=== PATIENT | female | born 1985 | race Caucasian/White ===

== ENCOUNTER 2019-05-09 19:03 | Emergency (ER) | payer BC, SELFPAY ==
[2019-05-09 19:18] VITALS: BP 117/67; PULSE 87; RESP 16; TEMP 37.9; O2SAT 100
--- NOTE | 2019-05-09 19:24 | ED.GENADULT ---
HPI - General Adult General Chief complaint: Upper Respiratory Infection Stated complaint: SORE THROAT Time Seen by Provider: 05/09/19 19:23 Source: patient Mode of arrival: ambulatory Limitations: no limitations History of Present Illness HPI narrative: Pt has had a sore throat, fever and congestion for 2.5 days. She has been treating at home with 600 mg Ibuprofen. States her Tmax at home was 101. She has had difficulty eating and drinking. Has history of asthma, no SOB or wheezing. Onset (ago): day(s) Associated symptoms: fever/chills, headaches, loss of appetite and malaise Treatments prior to arrival: NSAID Related Data Allergies Allergy/AdvReac Type Severity Reaction Status Date / Time No Known Allergies Allergy Unknown Unverified 08/10/12 09:59 Review of Systems Review of Systems: All systems reviewed & are unremarkable except as noted in HPI and below PMFSH Social History Social History (Updated 05/09/19 @ 19:44 by Kayley Flores PA-C) Smoking status: Never smoker Alcohol intake: never Substance use: never Living arrangements: with family Occupation/Education: unemployed Exam Const: General: no acute distress, alert and ill appearing Orientation/consciousness: patient oriented x3 HENMT: Ears: TM abnormal with fluid behind the TM on the right Throat: posterior oropharynx abnormal erythema Eyes: Conjunctivae: conjunctivae normal Pupils: Equal, round and reactive pupils present Neck: Neck: no lymphadenopathy Resp: Effort & Inspection: normal respiratory effort Auscultation: clear to auscultation bilaterally Cardio: Rate: regular rate Rhythm: regular rhythm Skin: General skin exam: normal color Rashes: no rashes Extrem: General: normal to inspection Psych: Mental Status: mental status grossly normal Course Course Emergency Course: Is strep positive. Flu is negative. Will discharge on Amoxicillin Vital Signs Vital signs: Vital Signs Temperature 37.9 C H 05/09/19 19:18 Pulse Rate 87 05/09/19 19:18 Respiratory Rate 16 05/09/19 19:18 Blood Pressure 117/67 05/09/19 19:18 Pulse Oximetry 100 05/09/19 19:18 Temperature 37.9 C H 05/09/19 19:18 Pulse Rate 87 05/09/19 19:18 Respiratory Rate 16 05/09/19 19:18 Blood Pressure 117/67 05/09/19 19:18 Pulse Oximetry 100 05/09/19 19:18 Medical Decision Making Vital Signs Vital Signs: Vital Signs Temperature 37.9 C H 05/09/19 19:18 Pulse Rate 87 05/09/19 19:18 Respiratory Rate 16 05/09/19 19:18 Blood Pressure 117/67 05/09/19 19:18 Pulse Oximetry 100 05/09/19 19:18 Temperature 37.9 C H 05/09/19 19:18 Pulse Rate 87 05/09/19 19:18 Respiratory Rate 16 05/09/19 19:18 Blood Pressure 117/67 05/09/19 19:18 Pulse Oximetry 100 05/09/19 19:18 Discharge Plan Discharge Clinical Impression: Acute streptococcal pharyngitis Patient Disposition: Home, Self-Care Condition: Stable Instructions: Antibiotic Form, Strep Throat (ED) Additional Instructions: Complete antibiotics as prescribed. Use cepestat throat lozenges for comfort. Take Ibuprofen or tylenol for temp >100.4. Do not share cups with your children. Follow up with your PMD as needed. Return to ED if you develop respiratory distress or are unable to swallow. Prescriptions: New amoxicillin 875 mg tablet 875 mg PO Q12H Qty: 14 RF: 0 Follow-up/Referrals: UNKNOWN,DOCTOR [Primary Care Provider] - Time of Disposition: 20:24
== END 2019-05-09 20:49 | disposition home or self-care (01) ==
PROVIDERS: Emergency Provider Emergency Medicine
DX: J02.0 Streptococcal pharyngitis (principal)
CPT/HCPCS: 87804; 87880; 99283

== ENCOUNTER 2020-02-21 20:42 | Emergency (ER) | payer BC, MEDICAID, SELFPAY ==
--- NOTE | ~2020-02-21 | XR_ITS ---
XR chest 1V portable DATE: 02/21/2020 22:11 INDICATION: Cough, shortness of breath. TECHNIQUE: Portable AP chest on 02/21/2020 at 2130 hours COMPARISON: 27/09/2018 PA and lateral chest FINDINGS: Normal heart size. No hilar or mediastinal enlargement. No pulmonary infiltrate or consolid ation, pleural effusion or pulmonary vascular congestion or pneumothorax. IMPRESSION: No active cardiopulmonary disease Reviewed, dictated and finalized at location A. T PSYCHIATRIST
--- NOTE | 2020-02-21 21:01 | ED.ASTHMA ---
HPI - Asthma General Chief Complaint: Asthma Stated Complaint: wheezing, asthma really bad Time Seen by Provider: 02/21/20 20:47 Source: patient Mode of arrival: ambulatory Limitations: no limitations History of Present Illness HPI Narrative: This patient is a 34 year old female with history of smoking and asthma who presents for evaluation an asthma exacerbation. Patient states she developed symptoms of cough, wheezing and chest congestion since Monday. She report she is coughing up a lot phlegm. Her cough has continued to worsen and she states she is having worsen productive cough with yellow sputum. She has severe coughing spells that have caused her to have vomiting. She denies fever, chills, or sick contacts. She has been using her rescue inhaler frequently without relief. Related Data Allergies Allergy/AdvReac Type Severity Reaction Status Date / Time No Known Allergies Allergy Verified 02/22/20 00:57 Review of Systems Review of Systems: All systems reviewed & are unremarkable except as noted in HPI and below Constitutional: Constitutional: Denies chills and Denies fever(s) ENT: Denies nasal congestion and Denies sore throat Cardiovascular: Cardiovascular: Denies chest pain Respiratory: Respiratory: Reports chest congestion, Reports cough, Reports dyspnea and Reports wheezing Gastrointestinal: Gastrointestinal: Denies abdominal pain and Reports vomiting (after coughing spell) [facility] Past Medical History Medical History (Updated 02/22/20 @ 00:57 by Tania Sutton MD) Asthma Surgical History Surgical History (Updated 02/21/20 @ 21:02 by Tania Sutton MD) H/O hernia repair Social History Social History (Updated 02/21/20 @ 21:02 by Tania Sutton MD) Tobacco type: e-cigarettes/vaping Alcohol intake: never Substance use: never Exam Const: General: no acute distress and alert Orientation/consciousness: patient oriented x3 HENMT: Head: normocephalic and atraumatic Ears: TM's normal bilaterally General nose exam: No nasal polyps present Face and sinus: face symmetric Mouth: Yes Normal oral and palatal mucosa present, Yes lip normal, Yes oropharynx normal and Yes moist mucous membranes Teeth and gingiva: dentition normal and gingiva normal Throat: posterior oropharynx normal, tonsils normal and uvula midline Eyes: EOM: EOMs intact bilaterally Resp: Effort & Inspection: normal respiratory effort, not labored, no retractions and not tachypneic Auscultation: wheezes expiratory wheezes and throughout Cardio: Rate: tachycardic Rhythm: regular rhythm Heart sounds: no murmurs GI: GI Palp: Yes Soft to palpation, No Tenderness to palpation present (GI), No Guarding due to palpation present (GI) and No Rigid due to palpation Back/Spine/Pelvis: Back: no CVA tenderness Skin: General skin exam: normal color Lesions: no lesions Neuro: General: patient oriented x3 and moves all extremities Course Reevaluation(s) Reevaluation #1: PAtient is still having wheezing so will order another MDI Date: 02/21/20 Time: 22:57 Reevaluation #2: Patient states she feels much better and she is ready for discharge home. Date: 02/22/20 Time: 00:54 Vital Signs Vital signs: Vital Signs Temperature 98.1 F 02/21/20 21:07 Pulse Rate 120 H 02/21/20 21:07 Respiratory Rate 20 02/21/20 21:07 Blood Pressure 136/123 H 02/21/20 21:07 Pulse Oximetry 100 02/21/20 21:07 Temperature 98.1 F 02/21/20 21:07 Pulse Rate 107 H 02/22/20 01:13 Respiratory Rate 18 02/22/20 01:13 Blood Pressure 147/74 H 02/22/20 01:13 Pulse Oximetry 97 02/22/20 01:13 MDM - Asthma Lab Data Attestation: I reviewed the patient's lab results. Result diagrams: 02/21/20 21:48 02/21/20 21:48 Labs: Lab Results 02/21/20 02/21/20 02/21/20 Range/Units 21:39 21:48 21:48 WBC 11.4 H (4.5-10.0) K/mm3 RBC 4.60 (4.2-5.4) M/mm3 Hgb 12.0 (12.0-
[2020-02-21 21:07] VITALS: BP 136/123; PULSE 120; RESP 20; TEMP 36.7; O2SAT 100
[2020-02-21 21:11] VITALS: PULSE 138; RESP 28
[2020-02-21] MEDS: ALBUTEROL SULFATE (*SP) AEROSOL 1 PUFF 6 PUFF INHALATION ×2 (21:11→23:04)
[2020-02-21] MEDS: predniSONE 20 MG TABLET 60 MG PO (21:25)
[2020-02-21 22:01] LABS: Basophils Absolute Auto 0.1 K/mm3 (0.0-0.1); Eosinophils Absolute Auto 1.2 K/mm3 (0-0.3); Eosinophils Percent Auto 10.4 % (0-4.4); Hematocrit 36.6 % (37.0-47.0); Immature Granulocyte Absolute 0.05 K/mm3 (0.00-0.031); Immature Granulocyte Percent A 0.4 % (0-0.5); Lymphocytes Absolute Auto 1.75 K/mm3 (0.9-3.2); Lymphocytes Percent Auto 15.4 % (18.3-44.2); Mean Corpuscular HGB Conc 32.8 g/dl (32-36); Mean Corpuscular Hemoglobin 26.1 pg (26-34); Mean Corpuscular Volume 79.6 fl (80-100); Mean Platelet Volume 9.9 fl (7.4-10.4); Monocytes Absolute Auto 0.6 K/mm3 (0.1-0.6); Monocytes Percent Auto 5.6 % (2.6-8.5); Neutrophils Absolute Auto 7.7 K/mm3 (1.3-6.7); Neutrophils Percent Auto 67.2 % (45.5-73.1); Platelet Count Result 363 k/mm3 (150-375); Red Cell Distribution Width 15.3 % (11.5-14.5); White Blood Count 11.4 K/mm3 (4.5-10.0)
[2020-02-21 22:10] LABS: Lactic Acid Reflex 1.5 mmol/L (0.7-2.1)
[2020-02-21 22:11] LABS: Alanine Aminotransferase 27 U/L (4-35); Albumin Level 4.8 g/dL (3.5-5.1); Alkaline Phosphatase 62 U/L (38-126); Anion Gap 12 mmol/L (8-16); Aspartate Amino Transferase 30 U/L (14-36); Bilirubin,Total 0.6 mg/dL (0.2-1.3); Blood Urea Nitrogen 6 mg/dL (7-17); Calcium 9.9 mg/dL (8.4-10.2); Carbon Dioxide 24 mmol/L (22-30); Chloride 104 mmol/L (98-107); Estimated CRCL calculation 91 ml/min; Estimated Glomerular Filt Rate > 60; Glucose 99 mg/dL (65-105); Potassium 3.8 mmol/L (3.4-5.0); Sodium 140 mmol/L (137-145)
[2020-02-21 22:16] LABS: CRP 0.8 mg/dL (<1.0)
[2020-02-21 23:04] VITALS: PULSE 115; RESP 26
[2020-02-21] MEDS: LACTATED RINGERS 1,000 ML 999 ML IV CONT (23:39)
[2020-02-22 01:13] VITALS: BP 147/74; PULSE 107; RESP 18; O2SAT 97
[2020-02-22 13:19] LABS: SARS-CoV-2 RNA PCR Negative
== END 2020-02-22 01:15 | disposition home or self-care (01) ==
PROVIDERS: Emergency Provider General Practice
DX: J45.901 Unspecified asthma with (acute) exacerbation (principal); Z20.828 Contact with and (suspected) exposure to other viral communicable diseases
CPT/HCPCS: 36415; 71045; 80053; 81025; 83605; 85025; 86140; 87635; 94640; 96365; 99284; A9270; C9803; J0456; J7120; J7512; U0003

== ENCOUNTER 2020-04-09 16:57 | Emergency (ER) | payer BC, SELFPAY ==
[2020-04-09] VITALS (15 sets, daily range): BP systolic 115–130; BP diastolic 59–95; PULSE 68–113; RESP 9–28; TEMP 36.3; O2SAT 94–99
--- NOTE | ~2020-04-09 | XR_ITS ---
EXAMINATION: XR chest 1V portable INDICATION: Shortness of breath and fever TECHNIQUE: Portable AP chest at 1753 hours COMPARISON: 02/21/2020 FINDINGS: The lungs are free of acute opacities. There is no pleural effusion or pneumothorax. The ca rdiomediastinal silhouette is normal. The visualized bones and soft tissues are unremarkable. IMPRESSION: 1. No acute cardiopulmonary abnormality. Reviewed, dictated and finalized at location A. OMER SERVICE RECEPTIONIST
[2020-04-09 17:28] LABS: Basophils Absolute Auto 0.1 K/mm3 (0.0-0.1); Basophils Percent Auto 1.4 % (0.2-1.2); Eosinophils Absolute Auto 1.1 K/mm3 (0-0.3); Eosinophils Percent Auto 14.2 % (0-4.4); Hematocrit 35.3 % (37.0-47.0); Hemoglobin 11.5 g/dL (12.0-15.0); Immature Granulocyte Absolute 0.02 K/mm3 (0.00-0.031); Immature Granulocyte Percent A 0.3 % (0-0.5); Lymphocytes Absolute Auto 1.48 K/mm3 (0.9-3.2); Mean Corpuscular HGB Conc 32.6 g/dl (32-36); Mean Corpuscular Hemoglobin 26.1 pg (26-34); Mean Corpuscular Volume 80.2 fl (80-100); Mean Platelet Volume 9.9 fl (7.4-10.4); Monocytes Absolute Auto 0.5 K/mm3 (0.1-0.6); Monocytes Percent Auto 6.9 % (2.6-8.5); Neutrophils Absolute Auto 4.5 K/mm3 (1.3-6.7); Neutrophils Percent Auto 58.2 % (45.5-73.1); Platelet Count Result 362 k/mm3 (150-375); Red Cell Distribution Width 14.7 % (11.5-14.5); White Blood Count 7.8 K/mm3 (4.5-10.0)
--- NOTE | 2020-04-09 17:31 | ED.GENADULT ---
HPI - General Adult General Chief complaint: Shortness of Breath/Dyspnea Stated complaint: SOB Time Seen by Provider: 04/09/20 17:10 Source: patient and EMS Mode of arrival: EMS Limitations: no limitations History of Present Illness HPI narrative: Patient is a 34-year-old female who presents for EMS from home patient has been struggling with upper respiratory symptoms for over a week with Covid testing pending patient notes productive cough, sinus congestion rhinorrhea body aches nausea patient with history of asthma with increased use of her inhaler also history of e-cigarette use patient presents per EMS noting that she has had more shortness of breath over the last couple of days patient on arrival does not appear distressed Related Data Home Medications Medication Instructions Recorded Confirmed Qvar RediHaler 04/09/20 albuterol sulfate INHALATION 04/09/20 buprenorphine-naloxone film 04/09/20 Allergies Allergy/AdvReac Type Severity Reaction Status Date / Time No Known Allergies Allergy Unknown Verified 04/09/20 17:33 [facility] Social History Social History (Updated 05/09/19 @ 19:44 by Kayley Flores PA-C) Smoking status: Never smoker Alcohol intake: never Substance use: never Gender identity (if verbalized by the patient): Female Course Course Emergency Course: Patient a 34-year-old female who presented with upper respiratory symptoms Covid testing pending likely Covid given family members also having known Covid patient with no pneumonia seen on exam no hypoxemia heart rate normalized no longer tachypnea will be sent home with an MDI and other supportive medications advised to self quarantine to purchase a home pulse oximeter to follow her oxygenation. Patient is afebrile nontoxic-appearing without emesis or diarrhea. Patient agreeing to plan and will follow with primary care Vital Signs Vital signs: Vital Signs Temperature 97.3 F L 04/09/20 17:26 Pulse Rate 109 H 04/09/20 17:26 Respiratory Rate 27 H 04/09/20 17:26 Blood Pressure 116/78 04/09/20 17:26 Pulse Oximetry 97 04/09/20 17:26 Temperature 97.3 F L 04/09/20 17:26 Pulse Rate 109 H 04/09/20 17:26 Respiratory Rate 27 H 04/09/20 17:26 Blood Pressure 116/78 04/09/20 17:26 Pulse Oximetry 97 04/09/20 17:26 Medical Decision Making MDM Narrative Medical decision making narrative: Patient with likely Covid related symptoms was given Decadron for her wheezing will be sent home with medications for her symptoms. Vital Signs Vital Signs: Vital Signs Temperature 97.3 F L 04/09/20 17:26 Pulse Rate 109 H 04/09/20 17:26 Respiratory Rate 27 H 04/09/20 17:26 Blood Pressure 116/78 04/09/20 17:26 Pulse Oximetry 97 04/09/20 17:26 Temperature 97.3 F L 04/09/20 17:26 Pulse Rate 109 H 04/09/20 17:26 Respiratory Rate 27 H 04/09/20 17:26 Blood Pressure 116/78 04/09/20 17:26 Pulse Oximetry 97 04/09/20 17:26 Lab Data Result diagrams: 04/09/20 17:20 04/09/20 17:20 Labs: Lab Results 04/09/20 04/09/20 04/09/20 Range/Units 17:20 17:20 17:20 WBC 7.8 (4.5-10.0) K/mm3 RBC 4.40 (4.2-5.4) M/mm3 Hgb 11.5 L (12.0-15.0) g/dL Hct 35.3 L (37.0-47.0) % MCV 80.2 (80-100) fl MCH 26.1 (26-34) pg MCHC 32.6 (32-36) g/dl RDW 14.7 H (11.5-14.5) % Plt Count 362 (150-375) k/mm3 MPV 9.9 (7.4-10.4) fl Immature Gran % (Auto) 0.3 (0-0.5) % Neut % (Auto) 58.2 (45.5-73.1) % Lymph % (Auto) 19.0 (18.3-44.2) % Elbert % (Auto) 6.9 (2.6-8.5) % Eos % (Auto) 14.2 H (0-4.4) % Baso % (Auto) 1.4 H (0.2-1.2) % Lymph # (Auto) 1.48 (0.9-3.2) K/mm3 Elbert # (Auto) 0.5 (0.1-0.6) K/mm3 Eos # (Auto) 1.1 H (0-0.3) K/mm3 Baso # (Auto) 0.1 (0.0-0.1) K/mm3 Abs Immat Gran (auto) 0.02 (0.00-0.031) K/mm3 Absolute Neuts (auto) 4.5 (1.3-6.7) K/mm3 Absolute Nucleated RBC 0.0 (0.0-0.012) K/mm3 Nucleated
[2020-04-09 17:38] LABS: Prothrombin Time 14.2 Seconds (11.1-14.7)
[2020-04-09 17:39] LABS: Partial Thromboplastin Time 30.1 SECONDS (22.3-36.8)
[2020-04-09 17:40] LABS: Lactic Acid Reflex 1.5 mmol/L (0.7-2.1)
[2020-04-09] MEDS: SODIUM CHLORIDE 0.9% IV 1,000 ML 999 ML IV CONT (18:08)
[2020-04-09] MEDS: DEXAMETHASONE SOD PHOS INJ 4 MG/ML VIAL 6 MG IV PUSH (18:09)
[2020-04-09] MEDS: FAMOTIDINE 20 MG/2 ML VIAL IV PUSH (18:09)
[2020-04-09 18:55] LABS: Alanine Aminotransferase 24 U/L (4-35); Albumin Level 4.5 g/dL (3.5-5.1); Alkaline Phosphatase 50 U/L (38-126); Anion Gap 9 mmol/L (8-16); Aspartate Amino Transferase 25 U/L (14-36); Bilirubin,Total 0.5 mg/dL (0.2-1.3); Blood Urea Nitrogen 7 mg/dL (7-17); CRP < 0.5 mg/dL (<1.0); Calcium 9.4 mg/dL (8.4-10.2); Carbon Dioxide 23 mmol/L (22-30); Chloride 108 mmol/L (98-107); Estimated CRCL calculation 105 ml/min; Estimated Glomerular Filt Rate > 60; Glucose 99 mg/dL (65-105); Potassium 3.9 mmol/L (3.4-5.0); Sodium 140 mmol/L (137-145)
[2020-04-09 18:56] LABS: Add Urine Microscopic? YES; Appearance Urine Clear (Clear); Bilirubin Urine Negative (Negative); Blood Urine Negative (Negative); Color Urine Yellow (Yellow); Glucose Urine UA Negative (Negative); Ketones Urine Negative (Negative); Leukocyte Esterase Ur Negative LEU/UL (Negative); Mucus Urine Rare /lpf; Nitrate Urine Negative (Negative); Protein Urine Negative (Negative); RBC Urine 0-2 /hpf (0-2); Specific Grav Ur 1.016 (1.001-1.035); Squamous Epithelial Cell Urine Few /hpf (Few); WBC Urine 0-3 /hpf
--- NOTE | 2020-04-09 19:15 | PC.NURSE ---
Pt states continues to feel better. Report to CHARLIE Ross, to continue care. Pt awaiting fluids to infuse.
== END 2020-04-09 20:00 | disposition home or self-care (01) ==
PROVIDERS: Emergency Medicine Emergency Medical Services; Emergency Provider Emergency Medicine
DX: U07.1 COVID-19 (principal)
CPT/HCPCS: 36415; 71045; 80053; 81001; 83605; 85025; 85610; 85730; 86140; 87040; 96361; 96365; 96375; 99284; J0131; J1100; J7030

== ENCOUNTER 2020-07-08 17:37 | Emergency (ER) | payer BC, MEDICAID, SELFPAY ==
--- NOTE | ~2020-07-08 | XR_ITS ---
EXAMINATION: XR chest 2V DATE: 07/08/2020 18:32 INDICATION: Shortness of breath. COVID-19 pneumonia in April. TECHNIQUE: Frontal and lateral views of the chest were obtained. COMPARISON: Chest single view 04/09/2020 FINDINGS: The chest demonstrates clear lungs without pneumonia, pleural effusion, or pneumothorax. Th e heart size is normal. IMPRESSION: 1. No acute cardiopulmonary disease. Reviewed, dictated and finalized at location A.
[2020-07-08 18:02] VITALS: BP 129/81; PULSE 96; RESP 20; TEMP 36.3; O2SAT 97
[2020-07-08] MEDS: ALBUTEROL SULFATE NEB 2.5 MG/0.5 ML INH 5 MG INHALATION (18:33)
[2020-07-08] MEDS: IPRATROPIUM BR 0.02% INH SOLN 0.5 MG/2.5 ML VIAL INHALATION (18:33)
[2020-07-08 18:34] VITALS: PULSE 67; RESP 18
[2020-07-08] MEDS: methylPREDNISolone SOD SUCC 125 MG VIAL IM (18:34)
[2020-07-08 18:41] VITALS: PULSE 72; RESP 18
--- NOTE | 2020-07-08 19:08 | ED.GENADULT ---
HPI - General Adult General Chief complaint: Upper Respiratory Infection Stated complaint: trouble breathing, hx asthma Time Seen by Provider: 07/08/20 18:12 Source: patient Mode of arrival: ambulatory Limitations: no limitations History of Present Illness HPI narrative: Patient presents with chief complaint of wheezing and cough that has worsened over the past week. Patient states that she uses albuterol, Singulair, Mucinex and Spiriva for her asthma but feels that she has been having a more difficult time over the past week. Patient states that she had Covid in April and since she feels that her asthma is more easily set off. Patient states a month ago she had exacerbation and was on a Z-Tom and steroid however she did not receive a chest x-ray. Patient denies fever, chills, loss of taste or smell, nausea, vomiting, diarrhea, pain with inspiration or expiration. Related Data Home Medications Medication Instructions Recorded Confirmed albuterol sulfate INHALATION 07/08/20 fluticasone propionate INTRANASAL 07/08/20 07/08/20 Allergies Allergy/AdvReac Type Severity Reaction Status Date / Time No Known Allergies Allergy Verified 02/22/20 00:57 Review of Systems Review of Systems: Narrative: CONSTITUTIONAL: Denies fever, chills, or sweats. EYES: Denies visual changes, redness, or discharge. ENT: Denies rhinorrhea, congestion, sore throat, or otalgia. CARDIOVASCULAR: Denies chest pain, palpitations, or edema. RESPIRATORY: Reports cough and wheezing and dyspnea with exertion GASTROINTESTINAL: Denies abdominal pain, nausea, vomiting, or diarrhea. GENITOURINARY: Denies dysuria or hematuria. SKIN: Denies rash or itching. MUSCULOSKELETAL: Denies back pain, joint pain, or myalgia. NEUROLOGIC: Denies headache, numbness, dizziness, or weakness. PSYCHIATRIC: Denies anxiety or depression. [facility] Past Medical History Medical History (Updated 07/08/20 @ 19:12 by Yoseph Omer PA-C) Asthma Surgical History Surgical History (Updated 02/21/20 @ 21:02 by Tania Sutton MD) H/O hernia repair Social History Social History (Updated 02/21/20 @ 21:02 by Tania Sutton MD) Tobacco type: e-cigarettes/vaping Alcohol intake: never Substance use: never Gender identity (if verbalized by the patient): Female Exam Narrative: Exam Narrative: GENERAL: Well-appearing, well-nourished, and in no acute distress. HEAD: Normocephalic, atraumatic. EYES: PERRLA and EOMI. ENT: Nares clear, no rhinorrhea or epistaxis. Mucous membranes moist. Oropharynx without tonsillar hypertrophy exudate or other lesions. Bilateral TMs pearly atkinson nonbulging NECK: Supple. No adenopathy or masses. CHEST: Clear to auscultation. No respiratory distress. Diffuse wheezing. No rales or rhonchi HEART: Regular rate and rhythm. No murmur heard. Normal peripheral pulses. EXTREMITIES: Normal range of motion. No edema. SKIN: Warm, dry, no rash. NEURO: No focal deficits. Alert and oriented x3. PSYCH: Normal mood and affect. Course Vital Signs Vital signs: Vital Signs Temperature 97.4 F L 07/08/20 18:02 Pulse Rate 96 07/08/20 18:02 Respiratory Rate 20 07/08/20 18:02 Blood Pressure 129/81 07/08/20 18:02 Pulse Oximetry 97 07/08/20 18:02 Temperature 97.4 F L 07/08/20 18:02 Pulse Rate 72 07/08/20 18:41 Respiratory Rate 18 07/08/20 18:41 Blood Pressure 129/81 07/08/20 18:02 Pulse Oximetry 97 07/08/20 18:02 Medical Decision Making MDM Narrative Medical decision making narrative: Patient reports resolution in wheezing and tightness with DuoNeb and Solu-Medrol. Patient's x-ray does not show signs of pneumonia. Patient will be placed on prednisone and has been instructed to follow-up with her primary care for further evaluation. Informed patient that she may need pulmonary function testing to assess whether or not her asthma medications may need to be adjusted based on changes to her lung function after havi
[2020-07-08 19:24] VITALS: BP 132/70; PULSE 78; RESP 18; O2SAT 99
== END 2020-07-08 19:25 | disposition home or self-care (01) ==
PROVIDERS: Emergency Provider Emergency Medicine
DX: J45.901 Unspecified asthma with (acute) exacerbation (principal)
CPT/HCPCS: 71046; 94640; 96372; 99283; J2930

== ENCOUNTER 2020-09-11 08:38 | Emergency (ER) | payer BC, MEDICAID, SELFPAY ==
--- NOTE | ~2020-09-11 | XR_ITS ---
EXAMINATION: XR chest 1V portable DATE: 09/11/2020 09:51 INDICATION: Shortness of breath. Wheezing. TECHNIQUE: A single frontal view of the chest was obtained on 2 radiographs. COMPARISON: Chest 2 views 07/08/2020 FINDINGS: The chest demonstrates clear lungs without pneumonia, pleural effusion, or pneumothorax. Th e heart size is normal. IMPRESSION: 1. No acute cardiopulmonary disease. Reviewed, dictated and finalized at location A.
[2020-09-11 08:49] VITALS: BP 171/91; PULSE 109; RESP 18; TEMP 36.9; O2SAT 100
[2020-09-11 08:58] VITALS: PULSE 118
--- NOTE | 2020-09-11 09:18 | ECG_ITS ---
Measurements Intervals [place] Rate: 74 P: 48 FL: 162 QRS: 63 QRSD: 105 T: 34 QT: 385 QTc: 429 Interpretive Statements SINUS RHYTHM WITH MARKED SINUS ARRHYTHMIA INCOMPLETE RIGHT BUNDLE BRANCH BLOCK BASELINE ARTIFACT- I, II, III, AVR, AVL, AVF, V1-V6 BORDERLINE ECG Electronically Signed On 09-11-2020 11:19:07 CDT by Delroy Peter D.O.
--- NOTE | 2020-09-11 09:21 | ED.SOB ---
HPI - SOB/Dyspnea General Chief Complaint: Shortness of Breath/Dyspnea Stated Complaint: Difficulty breathing,Hx Asthma Time Seen by Provider: 09/11/20 09:09 Source: patient and RN notes reviewed Mode of arrival: ambulatory Limitations: no limitations History of Present Illness HPI Narrative: This is a 34 year old female with history of asthma who presents for evaluation of worsening shortness of breath and wheezing. She has been having worsening symptoms for the past 3-4 days . She was evaluated 3 weeks ago at [facility], and she was prescribed steroids, antibiotics. She felt better after taking her steroids but she was unable to complete antibiotics due to GI upset issues. She is unsure if she had pneumonia. Last night she reports having to use her albuterol inhaler multiple times with minimal relief. She reports burning midsternal pain with inspiration and cough. She denies fever, chills, nausea, vomiting or diarrhea. She has a productive cough with greenish sputum. She does reports e vaping. Denies taking Oral contraception, leg pain or swelling. Related Data Home Medications Medication Instructions Recorded Confirmed Qvar RediHaler 04/09/20 cetirizine [Zyrtec] 10 mg PO DAILY 09/11/20 Allergies Allergy/AdvReac Type Severity Reaction Status Date / Time No Known Allergies Allergy Unknown Verified 09/11/20 08:55 Review of Systems Review of Systems: All systems reviewed & are unremarkable except as noted in HPI and below Constitutional: Constitutional: Denies chills and Denies fever(s) ENT: Denies nasal congestion Cardiovascular: Cardiovascular: Reports chest pain and Denies radiating jaw, neck or arm pain Respiratory: Respiratory: Reports cough, Reports dyspnea and Reports wheezing Gastrointestinal: Gastrointestinal: Denies abdominal pain, Denies diarrhea, Denies nausea and Denies vomiting [facility] Past Medical History Medical History (Updated 09/11/20 @ 11:32 by Tania Sutton MD) Asthma Surgical History Surgical History (Updated 09/11/20 @ 09:27 by Tania Sutton MD) H/O inguinal hernia repair Social History Social History (Updated 09/11/20 @ 09:27 by Tania Sutton MD) Smoking status: Current every day smoker Tobacco type: e-cigarettes/vaping Alcohol intake: never Substance use: never Gender identity (if verbalized by the patient): Female Exam Const: General: alert and ill appearing; No no acute distress Orientation/consciousness: patient oriented x3 Eyes: EOM: EOMs intact bilaterally Chest: Chest palpation & inspection: normal inspection of the chest Resp: Effort & Inspection: normal respiratory effort, not labored, no retractions and not tachypneic Auscultation: wheezes expiratory wheezes and throughout Cardio: Rate: regular rate Rhythm: regular rhythm Heart sounds: no murmurs GI: GI Palp: Yes Soft to palpation, No Tenderness to palpation present (GI) and No Guarding due to palpation present (GI) Auscultation: normal bowel sounds Neuro: General: patient oriented x3, moves all extremities and CN's II-XI intact bilaterally Psych: Mental Status: mental status grossly normal Affect: normal affect Course Reevaluation(s) Reevaluation #1: Clementetent states she feels much better. On reevaluation, patient's wheezing almost completely clear except left posterior . She reports she has nebulizer at home so she will use that. She also has appointment with PCP Date: 09/11/20 Time: 11:30 Vital Signs Vital signs: Vital Signs Temperature 98.5 F 09/11/20 08:49 Pulse Rate 109 H 09/11/20 08:49 Respiratory Rate 18 09/11/20 08:49 Blood Pressure 171/91 H 09/11/20 08:49 Pulse Oximetry 100 09/11/20 08:49 Temperature 97.4 F L 09/11/20 11:54 Pulse Rate 102 H 09/11/20 11:54 Respiratory Rate 17 09/11/20 11:54 Blood Pressure 140/60 09/11/20 11:54 Pulse Oximetry 98 09/11/20 11:54 MDM - SOB/Dyspnea Lab Data
[2020-09-11] MEDS: predniSONE 20 MG TABLET 60 MG PO (09:28)
[2020-09-11] MEDS: LACTATED RINGERS 1,000 ML 999 ML IV CONT (09:28)
[2020-09-11] MEDS: IPRATROPIUM BR 0.02% INH SOLN 0.5 MG/2.5 ML VIAL 1 MG INHALATION (09:29)
[2020-09-11] MEDS: ALBUTEROL SULFATE NEB 2.5 MG/0.5 ML INH 10 MG INHALATION (09:29)
[2020-09-11 09:30] VITALS: PULSE 86; RESP 15
[2020-09-11 09:43] LABS: Base Excess ABG 0.6 mEq/l (+/-2.0); Carboxyhemoglobin 0.3 % THb (0-2.0); Fractional Inspired Oxygen 21 %; HCO3 ABG 24.9 mEq/l (22.0-26.0); Methemoglobin ABG 0.1 %THb (0-1.5); Oxygen Content ABG 14.7 %vol (16.0-22.0); Oxygen Saturation ABG 96.1 % (95.0-100.0); Oxyhemoglobin 94.5 % THb (90.0-100.0); PCO2 ABG 38.5 mmHg (35.0-45.0); PO2 ABG 79.6 mmHg (80.0-100.0); PO2 FiO2 Ratio Arterial Blood 3.79 %; Reduced Hemoglobin 5.1 %THb (0-5.0); pH ABG 7.428 (7.350-7.450)
[2020-09-11 09:49] LABS: Device ROOM AIR; Modified Allen's Test Pass; Site Drawn LEFT RADIAL
[2020-09-11 09:55] LABS: Basophils Absolute Auto 0.1 K/mm3 (0.0-0.1); Basophils Percent Auto 1.2 % (0.2-1.2); Eosinophils Absolute Auto 1.5 K/mm3 (0-0.3); Eosinophils Percent Auto 17.8 % (0-4.4); Hematocrit 34.2 % (37.0-47.0); Immature Granulocyte Absolute 0.02 K/mm3 (0.00-0.031); Immature Granulocyte Percent A 0.2 % (0-0.5); Lymphocytes Absolute Auto 2.08 K/mm3 (0.9-3.2); Lymphocytes Percent Auto 24.6 % (18.3-44.2); Mean Corpuscular HGB Conc 32.2 g/dl (32-36); Mean Corpuscular Hemoglobin 26.1 pg (26-34); Mean Platelet Volume 10.2 fl (7.4-10.4); Monocytes Absolute Auto 0.7 K/mm3 (0.1-0.6); Monocytes Percent Auto 7.9 % (2.6-8.5); Neutrophils Absolute Auto 4.1 K/mm3 (1.3-6.7); Neutrophils Percent Auto 48.3 % (45.5-73.1); Platelet Count Result 336 k/mm3 (150-375); Red Blood Count 4.22 M/mm3 (4.2-5.4); Red Cell Distribution Width 15.2 % (11.5-14.5); White Blood Count 8.4 K/mm3 (4.5-10.0)
[2020-09-11 10:06] LABS: Alanine Aminotransferase 45 U/L (4-35); Albumin Level 4.6 g/dL (3.5-5.1); Alkaline Phosphatase 51 U/L (38-126); Anion Gap 12 mmol/L (8-16); Aspartate Amino Transferase 33 U/L (14-36); Bilirubin,Total 0.7 mg/dL (0.2-1.3); Blood Urea Nitrogen 6 mg/dL (7-17); Calcium 10.1 mg/dL (8.4-10.2); Carbon Dioxide 25 mmol/L (22-30); Chloride 105 mmol/L (98-107); Estimated CRCL calculation 119 ml/min; Estimated Glomerular Filt Rate > 60; Glucose 100 mg/dL (65-105); Magnesium 1.7 mg/dL (1.6-2.3); Potassium 3.6 mmol/L (3.4-5.0); Sodium 142 mmol/L (137-145)
[2020-09-11 10:06] LABS: Lactic Acid Reflex 1.1 mmol/L (0.7-2.1)
[2020-09-11 10:12] LABS: Prothrombin Time 13.5 Seconds (11.1-14.7)
[2020-09-11 10:13] LABS: Partial Thromboplastin Time 28.7 SECONDS (22.3-36.8)
[2020-09-11 10:17] LABS: Troponin I < 0.012 ng/mL (0.000-0.034)
[2020-09-11 10:28] LABS: D Dimer 0.27 ug/mL (<0.48)
[2020-09-11 10:30] VITALS: PULSE 98; RESP 17
[2020-09-11 11:54] VITALS: BP 140/60; PULSE 102; RESP 17; TEMP 36.3; O2SAT 98
== END 2020-09-11 11:57 | disposition home or self-care (01) ==
PROVIDERS: Emergency Provider General Practice
DX: J45.901 Unspecified asthma with (acute) exacerbation (principal); J20.9 Acute bronchitis, unspecified; F17.290 Nicotine dependence, other tobacco product, uncomplicated; I45.10 Unspecified right bundle-branch block
CPT/HCPCS: 36415; 36600; 71045; 80053; 81025; 82375; 82805; 83050; 83605; 83735; 84484; 85025; 85380; 85610; 85730; 93005; 94640; 96360; 99284; J7120; J7512

== ENCOUNTER 2020-12-09 19:22 | Emergency (ER) | payer OTHER, SELFPAY ==
--- NOTE | 2020-12-09 19:29 | ECG_ITS ---
Measurements Intervals [place] Rate: 76 P: 45 AL: 143 QRS: 55 QRSD: 97 T: 35 QT: 370 QTc: 416 Interpretive Statements SINUS RHYTHM NORMAL ECG Electronically Signed On 12-10-2020 6:15:45 CDT by Delroy Peter D.O.
[2020-12-09 19:36] VITALS: BP 115/60; PULSE 78; RESP 14; TEMP 36.6; O2SAT 98
[2020-12-09 19:59] LABS: Basophils Percent Auto 0.6 % (0.2-1.2); Eosinophils Percent Auto 0.3 % (0-4.4); Hematocrit 35.2 % (37.0-47.0); Hemoglobin 11.1 g/dL (12.0-15.0); Immature Granulocyte Absolute 0.01 K/mm3 (0.00-0.031); Immature Granulocyte Percent A 0.3 % (0-0.5); Lymphocytes Absolute Auto 0.33 K/mm3 (0.9-3.2); Lymphocytes Percent Auto 9.2 % (18.3-44.2); Mean Corpuscular HGB Conc 31.5 g/dl (32-36); Mean Corpuscular Hemoglobin 25.7 pg (26-34); Mean Corpuscular Volume 81.5 fl (80-100); Monocytes Absolute Auto 0.5 K/mm3 (0.1-0.6); Monocytes Percent Auto 14.4 % (2.6-8.5); Neutrophils Absolute Auto 2.7 K/mm3 (1.3-6.7); Neutrophils Percent Auto 75.2 % (45.5-73.1); Platelet Count Result 262 k/mm3 (150-375); Red Blood Count 4.32 M/mm3 (4.2-5.4); Red Cell Distribution Width 15.3 % (11.5-14.5); White Blood Count 3.6 K/mm3 (4.5-10.0)
[2020-12-09 20:04] LABS: Anion Gap 15 mmol/L (8-16); Blood Urea Nitrogen 5 mg/dL (7-17); Calcium 9.5 mg/dL (8.4-10.2); Carbon Dioxide 25 mmol/L (22-30); Chloride 100 mmol/L (98-107); Estimated CRCL calculation 90 ml/min; Estimated Glomerular Filt Rate > 60; Glucose 112 mg/dL (65-110); Potassium 3.9 mmol/L (3.4-5.0); Sodium 140 mmol/L (137-145)
[2020-12-09 20:52] VITALS: TEMP 37.1
[2020-12-09 21:07] VITALS: RESP 20
[2020-12-09 22:03] LABS: EDCOVIDSCREEN Positive (Negative)
[2020-12-09] MEDS: ONDANSETRON HCL ODT 4 MG TABLET PO (22:07)
--- NOTE | 2020-12-09 22:10 | ED.GENADULT ---
HPI - General Adult General Chief complaint: Dizziness Stated complaint: headache, fever, dizziness, nausea Time Seen by Provider: 12/09/20 21:00 History of Present Illness HPI narrative: Patient is a 35-year-old female who presents ER with concern for COVID-19. She is unvaccinated. She presents with 24 hours of fever and headache as well as some mild nausea. No loss of taste or smell. Her and child are also sick. No known Covid exposures. No alleviating factors. She has been using her inhaler. No significant increase in shortness of breath. Related Data Home Medications Medication Instructions Recorded Confirmed Qvar RediHaler 04/09/20 cetirizine [Zyrtec] 10 mg PO DAILY 09/11/20 Allergies Allergy/AdvReac Type Severity Reaction Status Date / Time No Known Allergies Allergy Unknown Verified 12/09/20 20:55 Review of Systems Review of Systems: All systems reviewed & are unremarkable except as noted in HPI and below Constitutional: Constitutional: Reports chills, Reports fatigue and Reports fever(s) ENT: Denies nasal congestion and Denies sore throat Cardiovascular: Cardiovascular: Denies chest pain and Denies radiating jaw, neck or arm pain Respiratory: Respiratory: Reports cough, Denies dyspnea and Reports wheezing Gastrointestinal: Gastrointestinal: Denies abdominal pain, Reports nausea and Denies vomiting Neurologic: Denies focal weakness and Denies numbness PMFSH Past Medical History Medical History (Updated 12/09/20 @ 22:15 by Bismark Joshua MD) Asthma Surgical History Surgical History (Updated 09/11/20 @ 09:27 by Tania Sutton MD) H/O inguinal hernia repair Social History Social History (Updated 09/11/20 @ 09:27 by Tania Sutton MD) Smoking status: Current every day smoker Tobacco type: e-cigarettes/vaping Alcohol intake: never Substance use: never Gender identity (if verbalized by the patient): Female Exam Narrative: GENERAL: Unwell-appearing, well-nourished, and in no acute distress. HEAD: Normocephalic, atraumatic. CHEST: Scant basilar wheezing. No respiratory distress. HEART: Regular rate and rhythm. Normal peripheral pulses. EXTREMITIES: Normal range of motion. No edema. SKIN: Warm, dry, no rash. NEURO: Alert and oriented x3. PSYCH: Normal mood and affect. Course Course Emergency Course: Patient informed of results. Discharge home. Encouraged patient to use albuterol scheduled. Vital Signs Vital signs: Vital Signs Temperature 97.9 F 12/09/20 19:36 Pulse Rate 78 12/09/20 19:36 Respiratory Rate 14 12/09/20 19:36 Blood Pressure 115/60 12/09/20 19:36 Pulse Oximetry 98 12/09/20 19:36 Temperature 98.8 F 12/09/20 20:52 Pulse Rate 78 12/09/20 19:36 Respiratory Rate 20 12/09/20 21:07 Blood Pressure 115/60 12/09/20 19:36 Pulse Oximetry 98 12/09/20 19:36 Medical Decision Making Vital Signs Vital Signs: Vital Signs Temperature 97.9 F 12/09/20 19:36 Pulse Rate 78 12/09/20 19:36 Respiratory Rate 14 12/09/20 19:36 Blood Pressure 115/60 12/09/20 19:36 Pulse Oximetry 98 12/09/20 19:36 Temperature 98.8 F 12/09/20 20:52 Pulse Rate 78 12/09/20 19:36 Respiratory Rate 20 12/09/20 21:07 Blood Pressure 115/60 12/09/20 19:36 Pulse Oximetry 98 12/09/20 19:36 Lab Data Result diagrams: 12/09/20 19:45 12/09/20 19:45 Labs: Lab Results 12/09/20 12/09/20 12/09/20 Range/Units 19:45 19:45 21:28 WBC 3.6 L (4.5-10.0) K/mm3 RBC 4.32 (4.2-5.4) M/mm3 Hgb 11.1 L (12.0-15.0) g/dL Hct 35.2 L (37.0-47.0) % MCV 81.5 (80-100) fl MCH 25.7 L (26-34) pg MCHC 31.5 L (32-36) g/dl RDW 15.3 H (11.5-14.5) % Plt Count 262 (150-375) k/mm3 MPV 10.0 (7.4-10.4) fl Immature Gran % (Auto) 0.3 (0-0.5) % Neut % (Auto) 75.2 H (45.5-73.1) % Lymph % (Auto) 9.2 L (18.3-44.2) % Stewart % (Auto) 14.4 H (
[2020-12-09 22:36] VITALS: BP 117/62; PULSE 62; RESP 18; TEMP 36.8; O2SAT 100
== END 2020-12-09 22:36 | disposition home or self-care (01) ==
PROVIDERS: Family Medicine; Emergency Provider Emergency Medicine
DX: U07.1 COVID-19 (principal); F17.210 Nicotine dependence, cigarettes, uncomplicated; J45.909 Unspecified asthma, uncomplicated
CPT/HCPCS: 36415; 80048; 85025; 87426; 93005; 99283; A9270; C9803

== ENCOUNTER 2021-09-29 10:34 | Emergency (ER) | payer OTHER, SELFPAY ==
--- NOTE | 2021-09-29 11:03 | ED.EAR ---
HPI - Ear Problem General Chief complaint: Ear Stated complaint: double ear infection? Time Seen by Provider: 09/29/21 10:34 History of Present Illness HPI Narrative: 36-year-old female presents to the emergency room complaining of bilateral ear pain. Patient states that she was swimming recently, shortly thereafter was complaining of bilateral ear pain. Patient states the right ear is tender to touch. Denies any discharge. Denies hearing changes or hearing loss. Related Data Home Medications Medication Instructions Recorded Confirmed Qvar RediHaler 04/09/20 cetirizine 10 mg tablet (Zyrtec) 10 mg PO DAILY 09/11/20 Allergies Allergy/AdvReac Type Severity Reaction Status Date / Time No Known Allergies Allergy Unknown Verified 12/09/20 20:55 Review of Systems Review of Systems: CONSTITUTIONAL: Denies fever, chills, or sweats. EYES: Denies visual changes, redness, or discharge. ENT: Bilateral ear pain CARDIOVASCULAR: Denies chest pain, palpitations, or edema. RESPIRATORY: Denies cough or dyspnea. GASTROINTESTINAL: Denies abdominal pain, nausea, vomiting, or diarrhea. GENITOURINARY: Denies dysuria or hematuria. SKIN: Denies rash or itching. MUSCULOSKELETAL: Denies back pain, joint pain, or myalgia. NEUROLOGIC: Denies headache, numbness, dizziness, or weakness. PSYCHIATRIC: Denies anxiety or depression. [facility] Past Medical History Medical History Asthma Surgical History Surgical History H/O inguinal hernia repair Social History Social History Smoking status: Current every day smoker Tobacco type: e-cigarettes/vaping Alcohol intake: never Substance use: never Gender identity (if verbalized by the patient): Female Exam Narrative: GENERAL: Well-appearing, well-nourished, and in no acute distress. HEAD: Normocephalic, atraumatic. EYES: PERRLA and EOMI. ENT: Nares clear, no rhinorrhea or epistaxis. Mucous membranes moist. Oropharynx without tonsillar hypertrophy exudate or other lesions. Left TM pearly atkinson nonbulging; right tragal tenderness, erythema to right ear canal, no purulent drainage noted NECK: Supple. No adenopathy or masses. No carotid bruits or JVD CHEST: Clear to auscultation. No respiratory distress. No wheezes rales or rhonchi HEART: Regular rate and rhythm. No murmur heard. Normal peripheral pulses. ABDOMEN: Soft, nontender, nondistended, normal active bowel sounds. EXTREMITIES: Normal range of motion. No edema. SKIN: Warm, dry, no rash. NEURO: No focal deficits. Alert and oriented x3. PSYCH: Normal mood and affect. Discharge Plan Discharge Clinical Impression: Otitis externa Patient Disposition: Home, Self-Care Condition: Stable Instructions: Antibiotic Form Prescriptions: New ciprofloxacin-dexamethasone 0.3-0.1 % drops,suspension 4 drp EACH EAR Q12H 7 Days Qty: 7.5 0RF No Action cetirizine [Zyrtec] 10 mg Tablet 10 mg PO DAILY prednisone 10 mg Tablet See Taper PO DAILY 15 Days Qty: 45 0RF Taper: Prednisone Taper from 50 mg;15 days 50 mg DAILY for 3 Days and 0 Hour 40 mg DAILY for 3 Days and 0 Hour 30 mg DAILY for 3 Days and 0 Hour 20 mg DAILY for 3 Days and 0 Hour 10 mg DAILY for 3 Days and 0 Hour Rx Instructions: 50 mg daily for 3 days, then 40 mg for 3 days, then 30 mg for 3 days then 20 mg for 3 days then 10 mg for 3 days albuterol sulfate 5 mg/mL solution for nebulization 2.5 mg inhalation Q4H PRN (Reason: shortness of breath or wheezing) Qty: 20 0RF Qvar RediHaler Qvar RediHaler 80 mcg/actuation HFA aerosol breath activated 1 inh inhalation Q12H Qty: 10.6 0RF Rx Instructions: administer with spacer loratadine [Claritin] 10 mg tablet 10 mg PO DAILY PRN (Reason: allergy symptoms) Qty: 10 0RF fluticason
[2021-09-29 11:22] VITALS: BP 135/85; PULSE 78; RESP 16; TEMP 36.8; O2SAT 99
== END 2021-09-29 11:29 | disposition home or self-care (01) ==
LOC: ANHED 11:18
PROVIDERS: Emergency Provider Nurse Practitioner Family
DX: H60.93 Unspecified otitis externa, bilateral (principal); J45.909 Unspecified asthma, uncomplicated
CPT/HCPCS: 99283

== ENCOUNTER 2023-06-29 02:11 | Emergency (ER) | payer OTHER, SELFPAY ==
--- NOTE | ~2023-06-29 | XR_ITS ---
Portable chest x-ray Comparison: 09/11/2020 Clinical History: Wheezing Findings: Lungs are clear, without focal consolidation or pleural effusion. Cardiomediastinal silho uette is stable. Bones and soft tissues are unremarkable. Impression: Normal chest. Reviewed, dictated and finalized at [facility]. Impression: Normal chest.
[2023-06-29 02:23] VITALS: BP 163/83; PULSE 116; RESP 22; O2SAT 100
--- NOTE | 2023-06-29 02:31 | ED.GENADULT ---
HPI - General Adult General Chief complaint: Shortness of Breath/Dyspnea Stated complaint: wheezing, SOB Time Seen by Provider: 06/29/23 02:28 History of Present Illness HPI narrative: This is a 37-year-old female with history of asthma presenting with difficulty breathing. Patient says that her kids had a viral illness 2 weeks ago, she has been getting steadily worse since then got acutely worse in the last 2 days. She has been taking her inhalers and nebulizers without effect. Patient denies fevers chills chest pain abdominal pain. She does endorse cough w/ clear sputum. Related Data Home Medications Medication Instructions Recorded Confirmed Qvar RediHaler 04/09/20 albuterol sulfate 90 mcg/actuation inhalation 07/08/20 aerosol inhaler fluticasone propionate 50 intranasal 07/08/20 07/08/20 mcg/actuation nasal spray,suspension cetirizine 10 mg tablet (Zyrtec) 10 mg PO DAILY 09/11/20 Allergies Allergy/AdvReac Type Severity Reaction Status Date / Time No Known Allergies Allergy Verified 07/20/22 07:31 [facility] Past Medical History Medical History Asthma Asthma Surgical History Surgical History H/O hernia repair H/O inguinal hernia repair Social History Social History Smoking status: Current every day smoker Tobacco type: e-cigarettes/vaping Alcohol intake: never Substance use: never Living arrangements: with family Occupation/Education: unemployed Gender identity (if verbalized by the patient): Female Exam Narrative: APPEARANCE: No apparent distress. Head: atraumatic. EYES: EOMI, NOSE: Atraumatic NECK: Trachea midline RESPIRATORY: Wheezing in all hollins, speaking full sentences CARDIOVASCULAR: RRR, ABDOMINAL: Non-distended MUSCULOSKELETAl: No obvious deformities NEURO: Alert. Moving 4/4 extremities SKIN:: Warm, dry. Normal color PSYCHIATRIC: Normal affect Course Vital Signs Vital signs: Vital Signs Pulse Rate 116 H 06/29/23 02:23 Respiratory Rate 22 H 06/29/23 02:23 Blood Pressure 163/83 H 06/29/23 02:23 Pulse Oximetry 100 06/29/23 02:23 Pulse Rate 109 H 06/29/23 04:18 Respiratory Rate 15 06/29/23 04:18 Blood Pressure 133/78 06/29/23 04:18 Pulse Oximetry 96 06/29/23 04:18 Oxygen Delivery Room Air 06/29/23 03:09 Medical Decision Making MDM Narrative Medical decision making narrative: -Course: 37-year-old female with asthma presenting with wheezing. Given breathing treatment magnesium and steroids. On re-evaluation she is feeling better. patient discharged with return precautions. -DDX includes but is not limited to: Asthma exacerbation, viral illness, reactive airway disease -Co-morbidities complicating care: Asthma exacerbation -Independent interpretation of studies: chest x-ray negative, viral swabs negative -Interventions: 1 hour DuoNeb treatment, dexamethasone, steroids, magnesium, 1 L normal saline -Shared decision making / Disposition: discharge -RX albuterol, Flovent, dexamethasone Vital Signs Vital Signs: Vital Signs Pulse Rate 116 H 06/29/23 02:23 Respiratory Rate 22 H 06/29/23 02:23 Blood Pressure 163/83 H 06/29/23 02:23 Pulse Oximetry 100 06/29/23 02:23 Pulse Rate 109 H 06/29/23 04:18 Respiratory Rate 15 06/29/23 04:18 Blood Pressure 133/78 06/29/23 04:18 Pulse Oximetry 96 06/29/23 04:18 Oxygen Delivery Room Air 06/29/23 03:09 Lab Data Labs: Lab Results 06/29/23 Range/Units 02:41 Influenza A (RT-PCR) Negative (Negative) Influenza B (RT-PCR) Negative (Negative) RSV (RT-PCR) Negative (Negative) SARS-CoV-2 RNA (RT-PCR) Negative (Negative) Discharge Plan Discharge Clinical Impression: Asthma Patient Disposition: Home, Self-Care Condition: Stable Instru
[2023-06-29] MEDS: IPRATROPIUM BR 0.02% INH SOLN 0.5 MG/2.5 ML VIAL 1 MG INHALATION (02:47)
[2023-06-29] MEDS: ALBUTEROL SULFATE NEB 2.5 MG/3 ML INH 10 MG INHALATION (02:54)
[2023-06-29] MEDS: SODIUM CHLORIDE 0.9% IV 1,000 ML 999 ML IV CONT (03:04)
[2023-06-29] MEDS: dexAMETHasone SOD PHOS INJ 10 MG/ML 1 ML VIAL IV PUSH (03:04)
[2023-06-29] MEDS: MAGNESIUM SULF 2 GM/WATER 50ML 2 GM/50 ML BAG IVPB (03:07)
[2023-06-29 03:09] VITALS: PULSE 101
[2023-06-29 03:15] VITALS: BP 141/96; PULSE 101; RESP 11; O2SAT 100
[2023-06-29 03:21] LABS: Influenza A QL RT-PCR Negative (Negative); Influenza B QL RT-PCR Negative (Negative); RSV RNA, RT-PCR Negative (Negative); SARS-CoV-2 RNA PCR Negative (Negative)
[2023-06-29 03:30] VITALS: PULSE 98; RESP 14; O2SAT 100
--- NOTE | 2023-06-29 04:06 | PC.NURSE ---
Pt reports feeling much better.
[2023-06-29 04:18] VITALS: BP 133/78; PULSE 109; RESP 15; O2SAT 96
== END 2023-06-29 04:50 | disposition home or self-care (01) ==
PROVIDERS: Emergency Provider Emergency Medicine
DX: J45.909 Unspecified asthma, uncomplicated (principal); Z20.822 Contact with and (suspected) exposure to COVID-19; F17.290 Nicotine dependence, other tobacco product, uncomplicated
CPT/HCPCS: 71045; 87637; 96365; 96372; 99284; J1100; J3475; J7030

== ENCOUNTER 2023-08-18 22:01 | Emergency (ER) | payer OTHER, SELFPAY ==
--- NOTE | ~2023-08-18 | XR_ITS ---
EXAMINATION: XR chest 2V DATE: 08/18/2023 23:06 INDICATION: Cough and asthma TECHNIQUE: PA and lateral views of the chest were obtained. COMPARISON: Chest radiograph dated 06/29/2023 FINDINGS: The lungs remain clear with no focal airspace opacities, pulmonary edema, pleural effusion or pneumot horax. The cardiomediastinal silhouette is normal. Visualized bones and soft tissues are unremarkable . IMPRESSION: 1. No acute cardiopulmonary disease. Reviewed, dictated and finalized at location [facility].
[2023-08-18 22:02] VITALS: BP 145/64; PULSE 80; RESP 18; TEMP 36.2; O2SAT 100
[2023-08-18 22:06] VITALS: BP 145/64; PULSE 78; RESP 22; TEMP 36.2; O2SAT 100
[2023-08-18 22:11] VITALS: O2SAT 100
[2023-08-18] MEDS: predniSONE 20 MG TABLET 40 MG PO (22:29)
--- NOTE | 2023-08-18 22:29 | ED.ASTHMA ---
HPI - Asthma General Chief Complaint: Asthma Stated Complaint: asthma attack with wheezing Time Seen by Provider: 08/18/23 22:11 Source: patient Mode of arrival: ambulatory Limitations: no limitations History of Present Illness HPI Narrative: This is a 37 year old female that presents to the ER for asthma exacerbation. Reports she had recently ran out of her Flovent. Reports wheezing, shortness of breath and productive cough. Denies fevers. Related Data Home Medications Medication Instructions Recorded Confirmed Qvar RediHaler 04/09/20 albuterol sulfate 90 mcg/actuation inhalation 07/08/20 aerosol inhaler fluticasone propionate 50 intranasal 07/08/20 07/08/20 mcg/actuation nasal spray,suspension cetirizine 10 mg tablet (Zyrtec) 10 mg PO DAILY 09/11/20 Allergies Allergy/AdvReac Type Severity Reaction Status Date / Time No Known Allergies Allergy Verified 07/20/22 07:31 Review of Systems Review of Systems: CONSTITUTIONAL: Denies fever RESPIRATORY: Reports cough and dyspnea. All systems reviewed & are unremarkable except as noted in HPI and below PMFSH Past Medical History Medical History Asthma Asthma Surgical History Surgical History H/O hernia repair H/O inguinal hernia repair Social History Social History Smoking status: Current every day smoker Tobacco type: e-cigarettes/vaping Alcohol intake: never Substance use: never Living arrangements: with family Occupation/Education: unemployed Gender identity (if verbalized by the patient): Female Exam Narrative: GENERAL: Well-appearing, well-nourished, and in no acute distress. HEAD: Normocephalic, atraumatic. EYES: EOMI. ENT: Nares clear, no rhinorrhea or epistaxis. Mucous membranes moist. Oropharynx without tonsillar hypertrophy exudate or other lesions. CHEST: No respiratory distress. Mild expiratory wheezing. No rales or rhonchi HEART: Regular rate and rhythm. No murmur heard. Normal peripheral pulses. EXTREMITIES: Normal range of motion. No edema. SKIN: Warm, dry, no rash. NEURO: No focal deficits. Alert and oriented x3. PSYCH: Normal mood and affect Course Course Emergency Course: Patient updated on workup. Reports feeling better after nebulizer treatment and steroid Vital Signs Vital signs: Vital Signs Temperature 97.1 F L 08/18/23 22:02 Pulse Rate 80 08/18/23 22:02 Respiratory Rate 18 08/18/23 22:02 Blood Pressure 145/64 H 08/18/23 22:02 Pulse Oximetry 100 08/18/23 22:02 Oxygen Delivery Room Air 08/18/23 22:02 Temperature 97.1 F L 08/18/23 22:06 Pulse Rate 96 08/18/23 22:42 Respiratory Rate 22 H 08/18/23 22:42 Blood Pressure 145/64 H 08/18/23 22:06 Pulse Oximetry 100 08/18/23 23:11 Oxygen Delivery Room Air 08/18/23 23:11 MDM - Asthma MDM Narrative Medical decision making narrative: Patient presents to the emergency department for wheezing and shortness of breath. Also reports productive cough. History of asthma, she had ran out of her inhaled corticosteroid. She is afebrile and nontoxic appearing. Oxygen saturations normal on room air. Mild wheezing on exam. Given nebulizer treatment and steroid with relief. Chest x-ray without acute cardiopulmonary abnormality. Patient updated on her workup and agrees with plan of care. Given prescription for her fluticasone. Will be continued on oral steroid. She is to follow up with primary provider. She was given warnings to return to the ER Differential Diagnosis Differential diagnosis: Likely Acute exacerbation and Pneumonia Imaging Data Radiologist's impression: ITS Impressions Chest X-Ray 08/18/23 23:13 IMPRESSION: 1. No acute cardiopulmonary disease. Critical Care Time Critical Care Time Critical Care Time: No Dis
[2023-08-18 22:42] VITALS: PULSE 96; RESP 22
[2023-08-18] MEDS: IPRATROPIUM 0.5 MG/ALBUTEROL SULFATE 2.5 MG AMPUL.NEB 3 ML INHALATION (22:42)
[2023-08-18 23:11] VITALS: O2SAT 100
== END 2023-08-18 23:52 | disposition home or self-care (01) ==
PROVIDERS: Emergency Provider Physician Assistant
DX: J45.901 Unspecified asthma with (acute) exacerbation (principal); F17.290 Nicotine dependence, other tobacco product, uncomplicated
CPT/HCPCS: 71046; 94640; 99283; J7512

== ENCOUNTER 2024-01-03 19:31 | Emergency (ER) | payer OTHER, SELFPAY ==
--- NOTE | 2024-01-03 19:34 | ED.SOB ---
HPI - SOB/Dyspnea General Chief Complaint: Upper Respiratory Infection Stated Complaint: asthma,chest tight,wheezing Time Seen by Provider: 01/03/24 19:44 Source: patient and RN notes reviewed Mode of arrival: ambulatory Limitations: no limitations History of Present Illness HPI Narrative: 38-year-old female with history of asthma presents with concern for ?chest infection?. She reports several day history of chest tightening, wheezing, cough. Reports exposure to family members with similar symptoms. Reports she has been using her albuterol inhaler more frequently, she has used to 4 times today, she last used a couple of hours ago. She is out of her steroid inhaler and needs a refill. MD elicited complaint: shortness of breath Related Data Home Medications Medication Instructions Recorded Confirmed fluticasone propionate 110 1 puff inhalation BID 01/03/24 01/03/24 mcg/actuation HFA aerosol inhaler Allergies Allergy/AdvReac Type Severity Reaction Status Date / Time No Known Allergies Allergy Verified 01/03/24 19:45 Review of Systems Review of Systems: CONSTITUTIONAL: Denies malaise, chills, sweats. Reports fever. EYES: Denies visual changes, redness, or discharge. ENT: Reports rhinorrhea, congestion CARDIOVASCULAR: Denies chest pain, palpitations, or edema. RESPIRATORY: Reports cough, wheezing, dyspnea. GASTROINTESTINAL: Denies abdominal pain, nausea, vomiting, diarrhea SKIN: Denies rash or itching. MUSCULOSKELETAL: Denies myalgia. NEUROLOGIC: Denies headache. All systems reviewed & are unremarkable except as noted in HPI and below PMFSH Past Medical History Medical History Asthma Asthma Surgical History Surgical History H/O hernia repair H/O inguinal hernia repair Social History Social History Smoking status: Current every day smoker Tobacco type: e-cigarettes/vaping Alcohol intake: never Substance use: never Living arrangements: with family Occupation/Education: unemployed Gender identity (if verbalized by the patient): Female Comments At time of signature, agree with nursing past medical, surgical, social and family history. There is no relevant family history pertinent to the presenting complaint Exam Narrative: GENERAL: Nontoxic-appearing, well-nourished, and in no acute distress. HEAD: Normocephalic EYES: PERRLA, conjunctivae clear ENT: Nares clear, turbinates edematous and erythematous, clear discharge. Mucous membranes moist. TM pearly atkinson with dull light reflex bilaterally; no tragal tenderness. Oropharynx not erythematous without lesions. Tonsils not enlarged and without exudate, no drooling, no hoarseness, no trismus, uvula midline. NECK: Supple. No lymphadenopathy CHEST: Clear to auscultation, breath sounds equal. No wheezing, rhonchi, rales, or stridor. No respiratory distress, speaks in full sentences. HEART: Regular rate and rhythm. No murmur heard. SKIN: Warm, dry, no rash. NEURO: Alert and oriented x3. PSYCH: Normal mood and affect Course Course Emergency Course: Patient is aware of diagnosis, understands and agrees to treatment plan. Anticipatory guidance given. Patient agrees to follow-up as directed and is aware of reasons to seek care at the emergency department. Portions of this record may have been created with voice recognition software Level of Care: Express Care Visit Vital Signs Vital signs: Reviewed. MDM - SOB/Dyspnea Lab Data Attestation: I reviewed the patient's lab results. Critical Care Time Critical Care Time Critical Care Time: No Discharge Plan Discharge Clinical Impression: Asthma exacerbation Patient Disposition: Home, Self-Care Condition: Stable Instructions: Antibiotic Form, Asthma (ED) Additional Instructions: Take medicines as directed. Vis
[2024-01-03 19:35] VITALS: BP 130/96; PULSE 84; RESP 24; TEMP 37.1; O2SAT 96
[2024-01-03 19:49] VITALS: BP 130/96; PULSE 84; RESP 24; TEMP 37.1; O2SAT 96
== END 2024-01-03 19:54 | disposition home or self-care (01) ==
PROVIDERS: Emergency Provider Nurse Practitioner
DX: J45.901 Unspecified asthma with (acute) exacerbation (principal); F17.290 Nicotine dependence, other tobacco product, uncomplicated
CPT/HCPCS: 99213; G0463

== ENCOUNTER 2024-05-15 23:47 | Emergency (ER) | payer OTHER, SELFPAY ==
--- NOTE | ~2024-05-15 | XR_ITS ---
Clinical Indication: Shortness of breath PA and lateral views of the chest: Comparison: 08/18/2023 Findings: The lungs are clear, without evidence of focal consolidation or pleural effusion. Cardiome diastinal silhouette is within normal limits. Bones and soft tissues are unremarkable. Impression: Normal chest. Reviewed, dictated and finalized at [facility]. WASHER HAND Impression: Normal chest.
--- OUTSIDE RECORDS SUMMARY | 2024-05-15 23:49 | XMS_ITS | Referral Summary ---
Author Organization [facility] Address [address] [place] [address] Care Team Providers Care Completion Supervisor Name Role Phone Unavailable Primary Care Provider Unavailabl e Allergies No known active allergies Medications beclomethasone dipropionate (Qvar RediHaler) 80 mcg/actuation inhalerIndication s:Maintenance Therapy for Asthma Inhale 1 puff 2 (two) times a day Rinse mouth with water after use. Do not swallow. 1 each 4 Active albuterol HFA (PROVENTIL HFA,VENTOLIN HFA,PROAIR HFA) 90 mcg/actuation inhaler Inhale 2 puffs every 4 (four) hours as needed for wheezing or shortness of breath 18 g 4 Active amoxicillin-clavu lanate (AUGMENTIN) 875-125 mg per tablet Take 1 tablet by mouth every 12 (twelve) hours 14 tablet 4 Active Social History Tobacco Use Types Packs/Day Years Used Date Smoking Tobacco: Never Assessed Personal Safety Answer Date Recorded Have you ever been in or are you currently in a harmful physical or emotional relationship or is someone making you feel afraid or unsafe? Denies 05/21/2023 Comments No Sex and Gender Information Value Date Recorded Sex Assigned at Not on file Legal Sex Female 11:19 AM [employer] Gender Identity Not on file Sexual Orientation Not on file Last Filed Vital Signs Vital Sign Reading Time Taken Comments Blood Pressure 138/57 05/21/2023 2:07 PM [employer] Pulse 60 05/21/2023 2:07 PM [employer] Temperature 36.7 C (98.1 F) 05/21/2023 2:07 PM [employer] Respiratory Rate 20 05/21/2023 2:07 PM [employer] Oxygen Saturation 100% 05/21/2023 2:07 PM [employer] Inhaled Oxygen Concentration - - Weight 68 kg (150 lb) 05/21/2023 2:07 PM [employer] Height 167.6 cm (5' 6 ) 05/21/2023 2:07 PM [employer] Body Mass Index 24.21 05/21/2023 2:07 PM [employer] Plan of Treatment Not on file Insurance
--- OUTSIDE RECORDS SUMMARY | 2024-05-15 23:49 | XMS_ITS | Data Portability ---
Author Organization [facility] JOERadha [facility] Address [address] [place] [address] Care Team Providers Care Stump Shooter Name Role Phone LYNETTE SOSA Psychiatrist Assessment No assessment recorded. Plan of Treatment Reminders Order Date Submit Date Provider Last Modified By Organization Details Last Modified Time Details Appointments None recorded. Lab SARS CoV 2 RNA (COVID-19), QL, tobacco conditioner-PCR, respiratory specimen - sore throat [place] 2019 020 [facility] (Lab), [address] [place], [address], 0 17:44:25 SARS CoV 2 RNA (COVID-19), QL, tobacco conditioner-PCR, respiratory specimen - [place] 345 2019 020 [facility] (Lab), [address] [place], [address], 0 18:04:59 lipid panel, serum 2020 [facility], [address] [place] [address], [place] [address], [place], [address], 1 03:01:02 CMP, serum or plasma [facility], [address] [place] [address], [facility] [address], [place], [address], 1 03:01:02 vitamin D, 25-hydroxy, total, serum 2020 [facility], [address] [facility], [address], [place], [address], 03:01:02 CBC w/ auto diff 2020 [facility], [address] [facility], [address], [place], [address], 03:01:03 TSH, ultra-sensi tive, serum 2020 [facility], [address] [facility], [address], [place], [address], 16:00:38 Referral None recorded. Procedures None recorded. Surgeries None recorded. Imaging None recorded. Medication Orders loratadine 10 mg tablet 2020 [id number], [address], [place], [id number], 16:00:32 albuterol sulfate HFA 90 mcg/actuati on aerosol inhaler 2020 [id number], [address], [place], [id number], 16:00:33 Patient TargetsNo targets recorded. Patient Instructions Encounter Date Encounter Id Patient Instructions Last Modified By Organization Details Last Modified Time 08/20/2019 [id number] Reviewed the following recommendations: -Stay home and separate from others as much as possible. -Monitor your symptoms and seek medical attention for trouble breathing, persistent chest pain, confusion, or bluish lips or face. -Wear a mask if you must be around other people. -Wash your hands often for 20 seconds with soap and water and clean high-touch surfaces daily -You may discontinue home isolation if your symptoms are improving, it has been 7 days since symptoms started, and you have been fever free for at least 3 days. Not available 08/20/2019 16:00:19 01/21/2020 [id number] Reviewed the following recommendations: -Stay home and separate from others as much as possible. -Monitor your symptoms and seek medical attention for trouble breathing, persistent chest pain, confusion, or bluish lips or face. -Wear a mask if you must be around other people. -Wash your hands often for 20 seconds with soap and water and clean high-touch surfaces daily -You may discontinue home isolation if your symptoms are improving, it has been 10 days since symptoms started, and you have been fever free for at least 3 days. Reviewed the following recommendations: -Stay home and separate from others as much as possible. -Monitor your symptoms and seek medical attention for trouble breathing, persistent chest pain, confusion, or bluish lips or face. -Wear a mask if you must be around other people. -Wash your hands often for 20 seconds with soap and water and clean high-touch surfaces daily -You may discontinue home isolation if your symptoms are improving, it has been 7 days since symptoms started, and you have been fever free for at least 3 days. Not available 01/21/2020 16:56:23 10/26/2020 [id number] allergies: care instructions ssuthan Not available 10/26/2020 16:00:24 managing your allergies: care instructions ssuthan Not available 10/26/2020 16:00:24 learning about pain control when you have a history of opioid use disorder ssuthan Not available 10/26/2020 16:00:24 learning about healthy weight ssuthan Not available 10/26/2020 16:00:24 Reason for Referral None Reported. Results Created Date Observation Date Name Description Value Unit Range Abnormal Flag Note LastModifiedBy Organization Detail LastModifiedTime 08/20/19 20 08/20/2019 SARS CoV 2 RNA (COVI D-19) , QL, tobacco conditioner-P CR, respi rator y speci men sars - cov - 2 PCR NEGATI VE mL Not Available [facility] (Lab) [address] [place], [address], 08/21/2019 17:44:25 08/20/19 20 08/20/2019 SARS CoV 2 RNA (COVI D-19) , QL, tobacco conditioner-P CR, respi rator y speci men covidcom1 COMME NTS: This assay is desig liang to detec t the RdRp and N genes of SARS- CoV-2 using nucle ic acid ampli ficat ion. A negat juanis resul t does not precl ude the possi bilit y of 2019- nCoV infec tion since the adequ acy of sampl e colle ction and/o r low viral burde n may resul t in the prese nce of viral nucle ic acids level s below the graciela tical sensi tivit y of this test metho d. Not Available [facility] (Lab) [address] [facility], [place], [address], 08/21/2019 17:44:25 08/20/1908/20/2019 SARS CoV 2 RNA (COVI D-19) , QL, tobacco conditioner-P CR, respi rator y speci men covidcom2 Posit juanis resul ts are indic ative of the prese nce of SARS- CoV-2 RNA and do not rule out bacte rial infec tion or co-in fecti on with other virus es. Not Available [facility] (Lab) [address] [facility], [place], [address], 08/21/2019 17:44:25 08/20/1908/20/2019 SARS CoV 2 RNA (COVI D-19) , QL, tobacco conditioner-P CR, respi rator y speci men covidcom3 Test resul ts shoul d be used along with other clini john obser vatio ns, patie nt histo ry, epide miolo gical infor matio n and labor atory data in makin g the diagn osis. Not Available [facility] (Lab) [address], [place], [address], 08/21/2019 17:44:25 08/20/1908/20/2019 SARS CoV 2 RNA (COVI D-19) , QL, tobacco conditioner-P CR, respi rator y speci men covidcom4 This test has recei waldo FDA Emerg ency Use Autho rizat ion and has been verif ied by [facility] . This test is only autho rized for the durat ion of the decla ratio n and the circu mstan skylar that exist to justi fy the autho rizat ion of the emerg ency use of in vitro diagn ostic tests for the detec tion of SARS- CoV-2 virus and/o r diagn osis of COVID -19 infec tion under secti on 564 (b) (1) of the Act. 11 U.S.C . 360bb b-3 (b) (1), unles s the autho rizat ion is termi nated or revok ed soone r. Not Available [facility] (Lab) [address] [place], [address], 08/21/2019 17:44:25 08/20/19 20 08/20/2019 SARS CoV 2 RNA (COVI D-19) , QL, tobacco conditioner-P CR, respi rator y speci men covidcom5 [facility] is certi fied under CLIA- 88 as quali fied to perfo rm high compl exity testi ng. This testi ng was perfo rmed in the [facility] [place] [address] (CLIA Licen se #[id number], CAP #[id number], AU-ID #[id number]). Not Available [facility] (Lab) [address] [place], [address], 08/21/2019 17:44:25 08/20/19 20 08/20/2019 SARS CoV 2 RNA (COVI D-19) , QL, tobacco conditioner-P CR, respi rator y speci men covidcom6 Facts heet for healt hcare provi ders: https ://ww w.fda .gov/ media /1365 56/do wnloa d Facts heet for patie nts: https ://ww w.fda .gov/ media /1362 57/do wnloa d Not Available [facility] (Lab) [address] [place], [address], 08/21/2019 17:44:25 01/21/20 20 01/21/2020 SARS CoV 2 RNA (COVI D-19) , QL, tobacco conditioner-P CR, respi rator y speci men sars - cov - 2 PCR NEGATI VE mL Not Available [facility] (Lab) [address], [place], [address], 01/22/2020 18:04:59 01/21/2001/21/2020 SARS CoV 2 RNA (COVI D-19) , QL, tobacco conditioner-P CR, respi rator y speci men covidcom1 COMME NTS: This assay is desig liang to detec t the RdRp and N genes of SARS- CoV-2 using nucle ic acid ampli ficat ion. A negat juanis resul t does not precl ude the possi bilit y of 2019- nCoV infec tion since the adequ acy of sampl e colle ction and/o r low viral burde n may resul t in the prese nce of viral nucle ic acids level s below the graciela tical sensi tivit y of this test metho d. Not Available [facility] (Lab) [address], [place], [address], 01/22/2020 18:04:59 01/21/2001/21/2020 SARS CoV 2 RNA (COVI D-19) , QL, tobacco conditioner-P CR, respi rator y speci men covidcom2 Posit juanis resul ts are indic ative of the prese nce of SARS- CoV-2 RNA and do not rule out bacte rial infec tion or co-in fecti on with other virus es. Not Available [facility] (Lab) [address], [place], [address], 01/22/2020 18:04:59 01/21/2001/21/2020 SARS CoV 2 RNA (COVI D-19) , QL, tobacco conditioner-P CR, respi rator y speci men covidcom3 Test resul ts shoul d be used along with other clini john obser vatio ns, patie nt histo ry, epide miolo gical infor matio n and labor atory data in leny g the diagn osis. Not Available [facility] (Lab) [address] [place], [address], 01/22/2020 18:04:59 01/21/20 20 01/21/2020 SARS CoV 2 RNA (COVI D-19) , QL, tobacco conditioner-P CR, respi rator y speci men covidcom4 This test has recei waldo FDA Emerg ency Use Autho rizat ion and has been verif [facility] . This test is only autho rized for the durat ion of the decla ratio n and the circu mstan skylar that exist to justi fy the autho rizat ion of the emerg ency use of in vitro diagn ostic tests for the detec tion of SARS- CoV-2 virus and/o r diagn osis of COVID -19 infec tion under secti on 564 (b) (1) of the Act. 11 U.S.C . 360bb b-3 (b) (1), unles s the autho rizat ion is termi nated or revok ed soone r. Not Available [facility] (Lab) [address] [place], [address], 01/22/2020 18:04:59 01/21/20 20 01/21/2020 SARS CoV 2 RNA (COVI D-19) , QL, tobacco conditioner-P CR, respi rator y speci men covidcom5 [facility] is certi fied under CLIA- 88 as quali fied to perfo rm high compl exity testi ng. This testi ng was [facility] [place] [place] [address] (CLIA Licen se #[id number], CAP #[id number], AU-ID #[id number]). Not Available [facility] (Lab) [address] [place], [address], 01/22/2020 18:04:59 01/21/20 20 01/21/2020 SARS CoV 2 RNA (COVI D-19) , QL, tobacco conditioner-P CR, respi rator y speci men covidcom6 Facts heet for healt hcare provi ders: https ://ww [employer].Worlds .gov/ media /1368 56/do wnloa d Facts heet for patie nts: https ://[employer].Worlds .gov/ media /1362 57/do wnloa d Not Available [facility] (Lab) [address] [place], [address], 01/22/2020 18:04:59 Result Notes None recorded. Problems Name Problem SNOMED Code Status Onset Date Resolution Date Notes Provider Name and Address Organization Details Recorded Time Allergic rhinitis 15671204 Active 2020 Not Available [facility] 4 14:05:58 Body mass index 25-29 - overweight 586630198 Active 2020 Not Available [facility] 4 14:05:58 Elevated blood-pres sure reading without diagnosis of hypertensi on 051139568 Active 2020 Not Available [facility] 4 14:05:58 Electronic cigarette user 703154392 Active 2020 Not Available [facility] 4 14:05:58 History of opioid abuse 0788042518781 00 Active 2020 Not Available [facility] 4 14:05:58 Mild intermitte nt asthma 028726878 Active 2020 Not Available [facility] 4 14:05:58 Problem Notes None recorded. Procedures Surgical History Date Name Laterality Status Provider Name and Address Organization Details Recorded Time Hernia Repair completed KENIA Velasquez SIAbdoulaye 10/26/2020 15:06:51 Imaging Results None recorded. Procedure Notes None recorded. Medical Equipment None Reported. Allergies No known drug allergies Medications Name Sig Start Date Stop Date Status Note LastModified by Organization Details LastModified Time prednison e 10 mg tablet 10/26 completed Not Available Not Available Not Available clindamyc in HCl 300 mg capsule TAKE 1 CAPSULE BY MOUTH EVERY 6 HOURS FOR 10 DAYS 01/05 completed Dentist Not Available Not Available Not Available albuterol sulfate 2.5 mg/3 mL (0.083 %) solution for nebulizat ion USE 3 ML VIA NEBULIZE R EVERY 4 HOURS active Not Available Not Available No t Available azithromy moises 250 mg tablet TK 1 T PO QD active Not Available Not Available No t Available prednison e 20 mg tablet TAKE 2 TABLETS BY MOUTH EVERY DAY FOR 4 DAYS 10/26 completed Not Available Not Available Not Available amoxicill in 875 mg tablet 10/26 completed Not Available Not Available Not Available famotidin e 20 mg tablet TAKE 1 TABLET BY MOUTH TWICE DAILY 10/26 completed Not Available Not Available Not Available prednison e 50 mg tablet TK 1 T PO QD 10/26 completed Not Available Not Available Not Available methylpre dnisolone 4 mg tablets in a dose pack FOLLOW PACKAGE DIRECTIO NS. TAKE WITH FOOD active Not Available Not Available No t Available albuterol sulfate HFA 90 mcg/actua tion aerosol inhaler INHALE 2 PUFFS BY MOUTH EVERY 4 HOURS NEEDED active Not Available Not Available No t Available albuterol sulfate concentra te 5 mg/mL(0.5 %) solution for nebulizat ion USE 0.5ML VIA NEBULIZE R 4 HOURS NEEDED FOR SHORTNES S OF BREATH OR WHEEZING 10/26 completed Not Available Not Available Not Available fluticaso ne propionat e 50 mcg/actua tion nasal spray,nabil pension SHAKE LIQUID AND USE 2 SPRAYS IN EACH NOSTRIL DAILY 10/26 completed Not Available Not Available Not Available loratadin e 10 mg tablet Take 1 tablet every day by oral route as needed. 2020 active Not Available Not Available Not Avai lable ciproflox acin 0.3 %-dexamet hasone 0.1 % ear drops,nabil pension INSTILL 4 DROPS INTO BOTH EARS EVERY 12 HOURS FOR 7 DAYS active Not Available Not Available No t Available Flovent HFA 44 mcg/actua tion aerosol inhaler INHALE 2 PUFFS TWICE DAILY active Not Available Not Available No t Available buprenorp darnell 8 mg-naloxo ne 2 mg sublingua l film DISSOLVE 1 FILM IN THE MORNING AND 1/2 FILM IN THE EVENING. active Not Available Not Available No t Available QuickVue At-Home COVID-19 Test kit TEST DIRECTED TODAY active Not Available Not Available No t Available Vitals Date Recorded Body weight Body mass index (BMI) Body height Body temperature Respiratory rate Heart rate Oxygen saturation Oxygen saturation in Arterial blood by Pulse oximetry Systolic blood pressure Diastolic blood pressure Provider Name and Address Organization Details Last Updated DateTime 11067.6 4 g 28 kg/m2 167.64 cm 96.8 [degF] 16 /min 82 /min 98 % 98 % 140 mm[Hg] 86 mm[Hg] KENIA Velasquez [place] [facility] 15:12:17 Social History Question Answer Notes LastModified by [employer] ion Details LastModified Time Tobacco Smoking Status Former Smoker Kisha WilsonyGODFREYAve mathew [facility] 10/26/2020 15:03:50 Do You Have An Advance Directive? No Information not available 10/26/2020 What Is Your Level Of Alcohol Consumption? Occasional Information not available 10/26/2020 Are You Blind Or Do You Have Difficulty Seeing? No Information not available 10/26/2020 What Is Your Level Of Caffeine Consumption? Heavy Information not available 10/26/2020 In The 14 Days Before Symptom Onset, Have You Had Close Contact With A Laboratory-confir med COVID-19 While That Case Was Ill? No Information not available 10/26/2020 In The 14 Days Before Symptom Onset, Have You Had Close Contact With A Person Who Is Under Investigation For COVID-19 While That Person Was Ill? No Information not available 10/26/2020 Have You Been To An Area Known To Be High Risk For COVID-19? No Information not available 10/26/2020 Are You Currently Employed? No Information not available 10/26/2020 Are You Deaf Or Do You Have Serious Difficulty Hearing? Yes Left Ear Information not available 10/26/2020 What Type Of Diet Are You Following? REGULAR Information not available 10/26/2020 Do You Or Have You Ever Used E-cigarettes Or Vape? Current User Of Electronic Cigarettes About Ten Hits Daily 5% Information not available 10/26/2020 What Is The Highest Grade Or Level Of School You Have Completed Or The Highest Degree You Have Received? [id number] Information not available 10/26/2020 Are There Any Guns Present In Your Home? No Information not available 10/26/2020 What Was The Date Of Your Most Recent Tobacco Screening? 10/26/2020 Information not available 10/26/2020 What Is Your Relationship Status? Information not available 10/26/2020 Do You Use Your Seat Belt Or Car Seat Routinely? Yes Information not available 10/26/2020 Do You Have Smoke And Carbon Monoxide Detectors In Your Home? Yes Information not available 10/26/2020 Do You Or Have You Ever Used Smokeless Tobacco? Never Used Smokeless Tobacco Information not available 10/26/2020 Do You Feel Stressed (tense, Restless, Nervous, Or Anxious, Or Unable To Sleep At Night)? [id number] Information not available 10/26/2020 Do You Use Any Illicit Or Recreational Drugs? No Information not available 10/26/2020 Do You Use Sunscreen Routinely? Yes Information not available 10/26/2020 Do You Or Have You Ever Used Any Other Forms Of Tobacco Or Nicotine? Yes Information not available 10/26/2020 Sex: Female Functional Status Question Answer Note LastModified by Organization D etails LastModified Time Are you able to care for yourself? Yes Information not available 10/26/2020 What is your exercise level? Moderate Information not available 10/26/2020 Mental Status None recorded. Family History Relationship Description Onset Age of this Age Resolved Age Notes LastModified by Organization Details LastModified Time Mother Hypertensive disorder sebyrma Not available 2020 14:57:59 Mother Pulmonary emphysema sebyrma Not available 2020 15:01:10 Mother Cardiac pacemaker in situ ssuthan Not available 2020 15:59:00 Mother Essential hypertension ssuthan Not available 15:59:16 Paternal Grandfather Malignant neoplasm of liver sebyrma Not available 2020 14:58:58 Maternal Grandfather Malignant tumor of intestine sebyrma Not available 2020 14:59:12 Maternal Grandfather Diabetes mellitus sebyrma Not available 2020 15:00:37 Maternal Grandfather Pulmonary emphysema sebyrma Not available 2020 15:01:10 Maternal Grandmother Malignant neoplasm of uterus sebyrma Not available 2020 14:59:37 Paternal Grandmother Malignant tumor of lung sebyrma Not available 2020 15:00:19 Sister Hypertensive disorder ssuthan Not available 2020 15:59:27 Sister Asthma ssuthan Not available 15:59:43 Medical History Condition Response Coronary Artery Disease N Other N Atrial Fibrillation N High Blood Pressure N Depression N COPD N Blood Clots N Anxiety Disorder N Muscle, Joint, or Bone Problems Y Acid Reflux (GERD) N Cancer N Stroke N High Cholesterol N Liver Disease N Headaches Y Kidney or Bladder Problems N Thyroid Problems N GI Problems N Skin Problems N Anemia Y Heart Attack ([place]) N Diabetes N Seizures/Epilepsy Y Asthma Y Allergies Y Hepatitis N Osteoporosis N Heart Failure N Gynecological HistoryNo gynecological history recorded. Obstetrics History GPAL:G 0 P 0 0 0 0 Past Encounters Encounter ID Performer Location Encounter Start Date Encounter Closed Date Diagnosis/Indication Diagnosis SNOMED-CT Code Diagnosis ICD10 Code Diagnosis Note [id number] LORETTA STACK [address] [place] [address] 08/20/2019 15:46:20 08/22/2019 12:43:02 Sore throat 322337284 J02.9 [id number] LORET[facility] STACKia [address] [place] [id number] 9 01/21/2020 16:25:19 01/22/2020 09:47:30 Suspected COVID-19 593960948 Z03.89 [id number] MD Esa Bai [address] [facility] [place] [address] 10/26/2020 14:43:41 10/27/2020 18:07:25 Mild intermittent asthma 677239795 J45.20 Somewhat bothersome more since had CovidPrefe r inhaler (than neb solution)- albuterol MDI sentIf no better call for additional steroid inhaler vs future referral to Pulmo Allergic rhinitis 372849 04 J30.9 Avoid known allergensT marycarmen loratadine PRN History of opioid abuse 9042939409 61704 F11.11 On suboxone per the provider in [facility] Cou Electronic cigarette user 464474099 Z72.0 Recommend to slow down and quit at the earliest -5% Elevated blood-pressure reading without diagnosis of hypertension 128365486 R03.0 recommend to loose weight and low salt diet.H/o preeclamsi a + Body mass index 25-29 - overweight 601491592 Z68.28 Recommend to loose weight with diet control and exercise. Long-term drug therapy 474371717 Z79.899 Health Concerns Section Related Observation LastModified by Organization Detai ls LastModified Time None Recorded Concern Status LastModified by Organization Details LastModified Time None Recorded Advance Directives Directive N: Payers Encounter Date Sequence Insurance Name Policy Number Policy Cleaning Covered Member ID Cleaning Member ID Guarantor Name 08/20/2019 1 [place] [id number] 2 Xiang Johnie Jules [id number] Camilla Castilloiván 01/21/2020 1 [place] [id number] 2 Xiang S Jules [id number] Camilla Castilloiván 01/21/2020 1 [place] Camilla Castilloiván [id number] Camilla Castilloiván 10/26/2020 1 [place] [facility] OF PUBLIC AID Camillabakari Castilloiván [id number] Camilla Castilloiván 10/26/2020 2 *SELF PAY* Libia bakari Castilloiván Notes Date Note Type Note Provider Name and Address Organization Details Recorded Time 0 text/html COVID ScreeningReported bypatient.Onset/Durati on of fever:fever Associated Symptoms:shortness of breath; no cough; no shortness of breathCOVID-19 Symptoms June 2019Reported bypatient.COVID-19 Signs and Symptomscough resolved; fever resolved; shortness of breath resolved Associated Symptoms:no sputum production; no shortness of breath; no wheezing; no fever; no runny nose; no vomiting; no diarrhea; no nausea; no change in mental status; no hypotension; no tachycardia;sore throat;body aches pt states that has had fever, sob, sore throat and body aches for the past 2 weeks and desires symptoms KATH TALAVERA NP Attn: Accounting,[address] [place], [address], [facility] 08/20/2019 16:00:42 0 text/html COVID ScreeningReported bypatient.Onset/Durati on of fever:fever Associated Symptoms:shortness of breath; no cough; no shortness of breathCOVID-19 Symptoms June 2019Reported bypatient.COVID-19 Signs and Symptomscough resolved; fever resolved; shortness of breath resolved Associated Symptoms:no sputum production; no shortness of breath; no wheezing; no fever; no runny nose; no vomiting; no diarrhea; no nausea; no change in mental status; no hypotension; no tachycardia;sore throat;body aches pt states that has had fever, sob, sore throat and body aches for the past 2 weeks and denies exposure KATH TALAVERA NP Attn: Accounting,[address] [place], [address], [facility] 01/21/2020 16:57:08 1 text/html Asthma F/UReported bypatient.Severity:abl e to sleep during episode; does not interfere with daily activities Context:worsening(some what after Covid in Apr 2020)Generic HPI TemplateReported bypatient.Notes:Here to establish care as a new ptDiagnosed case asthma and substance abuse here to establish care.pt had covid Apr 2020 since then easily gets SOB mukund if one of the kids having upper resp symptoms- also attributes this to allergy (Pt does get sneezing episodes and itchy throat and eyes)Yet to get covid shot- has 6 kids and now living with Grandma who is against vaccine hence no one yet to get vaccinated (until move out in 1-2 months- only working, 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
--- OUTSIDE RECORDS SUMMARY | 2024-05-15 23:49 | XMS_ITS | Clinical Summary ---
Author Organization [facility] Address [address] [place] [address] Care Team Providers Care Wellness Ambassador Name Role Phone Unavailable Primary Care Provider [...] 12 (twelve) hours 14 tablet 4 Active Surgical History Surgery Date Site/Laterality Comments HERNIA REPAIR Medical History Medical History Date Comments Asthma History of opioid abuse (CMS/HCC) ([facility]) On suboxone per the provider in [place] Current every day vaping Allergic rhinitis Family History Medical History Relation Name Comments Colon cancer Maternal Grandfather Diabetes Maternal Grandmother Uterine cancer Maternal Grandmother Hypertension Mother Asthma Sister Hypertension Sister Relation Name Status Comments Maternal Grandfather Maternal Grandmother Mother Sister Social History Tobacco Use Types Packs/Day Years [...] on file 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 Gender Identity Not on file Sexual Orientation Not on file Obstetrics History Last Filed Vital Signs Vital Sign Reading Time Taken Comments Blood Pressure 138/57 05/21/2023 2:07 PM PRECISION MACHINE OPERATOR Pulse 60 05/21/2023 2:07 PM PRECISION MACHINE OPERATOR Temperature 36.7 C (98.1 F) 05/21/2023 2:07 PM PRECISION MACHINE OPERATOR Respiratory Rate 20 05/21/2023 2:07 PM PRECISION MACHINE OPERATOR Oxygen Saturation 100% 05/21/2023 2:07 PM PRECISION MACHINE OPERATOR Inhaled Oxygen Concentration - - Weight 68 kg (150 lb) 05/21/2023 2:07 PM PRECISION MACHINE OPERATOR Height 167.6 cm (5' 6 ) 05/21/2023 2:07 PM PRECISION MACHINE OPERATOR Body Mass Index 24.21 05/21/2023 2:07 PM PRECISION MACHINE OPERATOR Plan of Treatment Health Maintenance Due Date Last Done Comments Cervical Cancer Screening 1985 Depression Screening 1985 Hepatitis C Screening 1985 Pneumococcal vaccine <65 (1 of 2 - PCV) 09/20/1991 Varicella Vaccines (1 of 2 - 13+ 2-dose series) 1998 Hepatitis B Screening 09/20/2003 Regular Well Visit/Exam 18-64 09/20/2003 Influenza Vaccine (#1) 2023 7, 02/01/2014 DTaP/Tdap/Td Vaccine (3 - Td or Tdap) 02/24/2027 02/24/2017, 02/01/2014 HPV Vaccines Aged Out No longer eligi ble based on patient's age to complete this topic Insurance [facility]
[2024-05-15 23:50] VITALS: BP 144/80; PULSE 93; RESP 20; TEMP 36.8; O2SAT 100
--- NOTE | 2024-05-15 23:52 | ECG_ITS ---
Test Date: 2024-05-15 23:54:13 Measurements Intervals [place] Rate: 91 P: 49 [place]: 140 QRS: 63 QRSD: 105 T: 52 QT: 371 QTc: 457 Interpretive Statements SINUS RHYTHM BASELINE WANDER- II, III, AVR, AVL, AVF, V4-V6 NORMAL ECG No previous ECG available for comparison Electronically Signed On 05-16-2024 06:16:32 DYE HOUSE WHEEL OPERATOR by Delroy Peter D.O.
--- OUTSIDE RECORDS SUMMARY | 2024-05-16 04:51 | XMS_ITS | Referral Summary ---
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 Gender Identity Not on file Sexual Orientation Not on file Last Filed Vital Signs Vital Sign Reading Time Taken Comments Blood Pressure 138/57 05/21/2023 2:07 PM APPLIED ANTHROPOLOGIST Pulse 60 05/21/2023 2:07 PM APPLIED ANTHROPOLOGIST Temperature 36.7 C (98.1 F) 05/21/2023 2:07 PM APPLIED ANTHROPOLOGIST Respiratory Rate 20 05/21/2023 2:07 PM APPLIED ANTHROPOLOGIST Oxygen Saturation 100% 05/21/2023 2:07 PM APPLIED ANTHROPOLOGIST Inhaled Oxygen Concentration - - Weight 68 kg (150 lb) 05/21/2023 2:07 PM APPLIED ANTHROPOLOGIST Height 167.6 cm (5' 6 ) 05/21/2023 2:07 PM APPLIED ANTHROPOLOGIST Body Mass Index 24.21 05/21/2023 2:07 PM APPLIED ANTHROPOLOGIST Plan of Treatment Not on file Insurance
--- OUTSIDE RECORDS SUMMARY | 2024-05-16 04:51 | XMS_ITS | Clinical Summary ---
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 Gender Identity Not on file Sexual Orientation Not on file Obstetrics History Last Filed Vital Signs Vital Sign Reading Time Taken Comments Blood Pressure 138/57 05/21/2023 2:07 PM FUEL MANAGEMENT HANDLER Pulse 60 05/21/2023 2:07 PM FUEL MANAGEMENT HANDLER Temperature 36.7 C (98.1 F) 05/21/2023 2:07 PM FUEL MANAGEMENT HANDLER Respiratory Rate 20 05/21/2023 2:07 PM FUEL MANAGEMENT HANDLER Oxygen Saturation 100% 05/21/2023 2:07 PM FUEL MANAGEMENT HANDLER Inhaled Oxygen Concentration - - Weight 68 kg (150 lb) 05/21/2023 2:07 PM FUEL MANAGEMENT HANDLER Height 167.6 cm (5' 6 ) 05/21/2023 2:07 PM FUEL MANAGEMENT HANDLER Body Mass Index 24.21 05/21/2023 2:07 PM FUEL MANAGEMENT HANDLER Plan of Treatment Health Maintenance Due Date [...] patient's age to complete this topic Insurance [facility]
[2024-05-16 06:45] VITALS: BP 136/62; PULSE 93; RESP 15; O2SAT 100
[2024-05-16 07:24] VITALS: BP 148/87; PULSE 98; RESP 18; O2SAT 100
--- NOTE | 2024-05-16 07:37 | PC.NURSE ---
Patient stating she will need to leave by 0800. ED processes discussed with patient, awaiting MD huang. All questions answered. Call light in reach with family at bedside.
--- NOTE | 2024-05-16 07:45 | ED_ITS ---
HPI - General Adult General Chief complaint: Asthma Stated complaint: asthma. SOB. out of steroid inhaler Time Seen by Provider: 05/16/24 07:18 History of Present Illness HPI narrative: Patient 38-year-old female who presents emergency department with chief complaint of shortness of breath. Patient reports that she has been having symptoms for the last 2 days reports she renal her steroid inhaler patient reports this feels similar to whenever she has had a flare ups Related Data Home Medications ?Medication ?Instructions ?Recorded ?Confirmed ?Last Taken ?Type fluticasone propionate 110 1 puff inhalation BID 01/03/24 01/03/24 Unknown History mcg/actuation HFA aerosol inhaler Allergies Allergy/AdvReac Type Severity Reaction Status Date / Time No Known Allergies Allergy Verified 05/15/24 23:48 Review of Systems Review of Systems: A 10 system review of systems was completed on the patient and is negative except for what is stated in the HPI. Nursing and ancillary documentation was reviewed. [facility] Past Medical History Medical History Asthma Asthma Surgical History Surgical History H/O inguinal hernia repair H/O hernia repair Social History Social History Smoking status: Current every day smoker Tobacco type: e-cigarettes/vaping Alcohol intake: never Substance use: never Living arrangements: with family Occupation/Education: unemployed Gender identity (if verbalized by the patient): Female Exam Narrative: GENERAL: Well-appearing, well-nourished, and in no acute distress. HEAD: Normocephalic, atraumatic. EYES: PERRLA and EOMI. ENT: Nares clear, no rhinorrhea or epistaxis. Mucous membranes moist. NECK: Supple. CHEST: Diffuse wheezing to auscultation. No respiratory distress. HEART: Regular rate and rhythm. No murmur heard. Normal peripheral pulses. ABDOMEN: Soft, nontender, nondistended, normal active bowel sounds. EXTREMITIES: Normal range of motion. No edema. SKIN: Warm, dry, no rash. NEURO: No focal deficits. Alert and oriented x3. PSYCH: Normal mood and affect. Course Vital Signs Vital signs: Vital Signs Temperature 36.8 C 05/15/24 23:50 Pulse Rate 93 05/15/24 23:50 Respiratory Rate 20 05/15/24 23:50 Blood Pressure 144/80 H 05/15/24 23:50 Pulse Oximetry 100 05/15/24 23:50 Oxygen Delivery Room Air 05/15/24 23:50 Temperature 36.8 C 05/15/24 23:50 Pulse Rate 98 05/16/24 07:24 Respiratory Rate 18 05/16/24 07:24 Blood Pressure 148/87 H 05/16/24 07:24 Pulse Oximetry 100 05/16/24 07:24 Oxygen Delivery Room Air 05/15/24 23:50 Medical Decision Making MDM Narrative Medical decision making narrative: Differential diagnosis includes pneumonia, asthma exacerbation, Vital Signs Vital Signs: Vital Signs Temperature 36.8 C 05/15/24 23:50 Pulse Rate 93 05/15/24 23:50 Respiratory Rate 20 05/15/24 23:50 Blood Pressure 144/80 H 05/15/24 23:50 Pulse Oximetry 100 05/15/24 23:50 Oxygen Delivery Room Air 05/15/24 23:50 Temperature 36.8 C 05/15/24 23:50 Pulse Rate 98 05/16/24 07:24 Respiratory Rate 18 05/16/24 07:24 Blood Pressure 148/87 H 05/16/24 07:24 Pulse Oximetry 100 05/16/24 07:24 Oxygen Delivery Room Air 05/15/24 23:50 Discharge Plan Discharge Clinical Impression: Asthma with acute exacerbation Instructions: Asthma (ED) Patient Language: Macanese Prescriptions: New fluticasone propionate 110 mcg/actuation HFA aerosol inhaler 1 puff inhalation Q12H Qty: 12 0RF prednisone 20 mg tablet 40 mg PO DAILY 5 Days Qty: 10 0RF No Action fluticasone propionate 110 mcg/actuation HFA aerosol inhaler 1 puff INHALATION BID azithromycin [Zithromax Z-Tom] 250 mg tablet See Rx Instructions .ROUTE .COMPLEX Qty: 6 0RF Rx Instructions: take 500 mg today (day 1), then 250 mg for 4 days (days 2-5) methylprednisolone [Medrol (Tom)] 4 mg tablets,dose pack See Rx Instructions .ROUTE .COMPLEX Qty: 21 0RF Rx Instructions: orally per package directions fluticasone propionate 44 mcg/actuation HFA aerosol inhaler 1 puff inhalation BID Qty: 10.6 0RF albuterol sulfate 90 mcg/actuation HFA aerosol inhaler 2 puff inhalation QID PRN (Reason: shortness of breath or wheezing) Qty: 6.7 0RF albuterol sulfate 1.25 mg/3 mL solution for nebulization 1.25 mg inhalation Q4H Qty: 90 0RF Follow-up/Referrals: [facility] [Primary Care Provider] -
[2024-05-16 08:01] VITALS: PULSE 96; RESP 17
[2024-05-16] MEDS: IPRATROPIUM 0.5 MG/ALBUTEROL SULFATE 2.5 MG AMPUL.NEB 3 ML INHALATION (08:01)
[2024-05-16] MEDS: methylPREDNISolone SOD SUCC 125 MG VIAL IM (08:03)
[2024-05-16 08:04] VITALS: PULSE 89
[2024-05-16 08:08] VITALS: PULSE 91; RESP 26
[2024-05-16 08:24] VITALS: BP 148/87; PULSE 73; RESP 16; O2SAT 99
== END 2024-05-16 08:27 | disposition home or self-care (01) ==
PROVIDERS: Emergency Provider Emergency Medicine
DX: J45.901 Unspecified asthma with (acute) exacerbation (principal); F17.210 Nicotine dependence, cigarettes, uncomplicated
CPT/HCPCS: 71046; 93005; 94640; 96372; 99284; J2919

== ENCOUNTER 2025-04-06 19:04 | Emergency (ER) | payer OTHER, SELFPAY ==
--- NOTE | 2025-04-06 19:09 | ED.URI ---
HPI - URI/Sore Throat General Chief Complaint: Upper Respiratory Infection Stated Complaint: Flu Symptoms Time Seen by Provider: 04/06/25 19:05 Source: patient Mode of arrival: ambulatory Limitations: no limitations History of Present Illness HPI Narrative: Patient is a 39-year-old female who presents with sore throat, cough, runny nose and headache that started this morning. Patient has taken ibuprofen. Patient was around 6 grandkids on [place]. Patient has history of asthma but does not need any refills on inhaler Related Data Home Medications ?Medication ?Instructions ?Recorded ?Confirmed ?Last Taken ?Type fluticasone propionate 110 1 puff inhalation BID 01/03/24 01/03/24 Unknown History mcg/actuation HFA aerosol inhaler Allergies Allergy/AdvReac Type Severity Reaction Status Date / Time No Known Allergies Allergy Verified 04/06/25 19:09 Review of Systems Review of Systems: All systems reviewed & are unremarkable except as noted in HPI and below Constitutional: Constitutional: Denies chills, Denies fatigue, Denies fever(s), Reports headache(s), Denies malaise and Denies weakness Eyes: Eyes: Denies blurry vision, Denies itchy eyes and Denies loss of vision ENT: Denies otalgia, Reports headache(s), Reports nasal congestion, Denies sinus pain and Reports sore throat Cardiovascular: Cardiovascular: Denies chest pain, Denies irregular heart rhythm and Denies dyspnea Respiratory: Respiratory: Reports cough and Denies dyspnea Gastrointestinal: Gastrointestinal: Denies abdominal pain, Denies diarrhea, Denies nausea and Denies vomiting Musculoskeletal: Musculoskeletal: Denies back pain, Denies myalgias and Denies arthralgias Integumentary/Breasts: Skin/Breast: Denies pruritus and Denies rash Neurologic: Reports headache(s), Denies loss of vision and Denies weakness Psychiatric: Psychiatric: Reports no additional psychiatric complaints Endocrine: Endocrine: Denies fatigue Allergic/Immunologic: Allergic/Immunologic: Denies itchy eyes PMFSH Past Medical History Medical History Asthma Asthma Surgical History Surgical History H/O inguinal hernia repair H/O hernia repair Social History Social History Smoking status: Current every day smoker Tobacco type: e-cigarettes/vaping Alcohol intake: never Substance use: never Living arrangements: with family Occupation/Education: unemployed Gender identity (if verbalized by the patient): Female Comments At time of signature, agree with nursing past medical, surgical, social and family history. There is no relevant family history pertinent to the presenting complaint. Exam Const: General: cooperative, healthy appearing, comfortable, no acute distress and well nourished Nutritional Appearance: well nourished Orientation/consciousness: patient oriented x3 Limitations: no limitations HENMT: Head: normal to inspection, normocephalic and atraumatic Ears: hearing grossly normal bilaterally, external ears normal, TM's normal bilaterally, EAC's normal and no periauricular adenopathy Face/Nose/Sinus: Normal external nose present, Abnormal mucous membranes and turbinates present erythematous bilateral and diffuse, normal facial exam, sinuses nontender and face symmetric Face and sinus: normal facial exam, sinuses nontender and face symmetric Mouth: Yes Normal oral and palatal mucosa present, Yes lip normal, Yes tongue normal, Yes Normal salivary glands and ducts present, Yes oropharynx normal and Yes moist mucous membranes Teeth and gingiva: dentition normal Throat: posterior oropharynx normal, tonsils normal and uvula midline Eyes: General: appearance normal, both eyes and all related structures Alignment and Position: alignment normal and position normal Periorbital: periorbital findings normal Eyelids: eyelids normal Pupils: Equal, round and reactive pupils present Neck: Neck: normal visual inspection, full ROM, no lymphadenopathy and supple Chest: Chest palpation & inspection: normal inspection of the chest and normal palpation of entire chest wall Resp: Effort & Inspection: normal respiratory effort and able to speak in complete sentences Auscultation: clear to auscultation bilaterally, no crackles, no rales, no rhonchi and no wheezes Cardio: Rate: tachycardic Rhythm: regular rhythm Heart sounds: S1 normal heart sound present and S2 normal heart sound present GI: Inspection: normal to inspection Skin: General skin exam: normal color and no rashes or lesions noted Neuro: General: patient oriented x3 and moves all extremities Cranial nerves: Yes Equal, round and reactive pupils present Speech: normal speech Gait exam (Neuro): Normal gait present Extrem: General: normal to inspection, full ROM and no edema Psych: Appearance: grossly normal and well kempt Mental Status: mental status grossly normal Speech and movement: Normal speech and movement present Affect: normal affect Attitude: cooperative Thought process: Normal thought process present Course Course Emergency Course: Patient is aware of diagnosis, understands and agrees to treatment plan. Anticipatory guidance given. Patient agrees to follow-up as directed and is aware of reasons to seek care at the emergency department. Portions of this record may have been created with voice recognition software Level of Care: Express Care Visit Vital Signs Vital signs: Vital Signs Temperature 37.2 C 04/06/25 19:27 Pulse Rate 106 H 04/06/25 19:27 Respiratory Rate 18 04/06/25 19:27 Blood Pressure 129/70 04/06/25 19:27 Pulse Oximetry 100 04/06/25 19:27 Oxygen Delivery Room Air 04/06/25 19:27 Temperature 37.2 C 04/06/25 19:27 Pulse Rate 106 H 04/06/25 19:27 Respiratory Rate 18 04/06/25 19:27 Blood Pressure 129/70 04/06/25 19:27 Pulse Oximetry 100 04/06/25 19:27 Oxygen Delivery Room Air 04/06/25 19:27 [facility] MDM Narrative Medical decision making narrative: Rapid COVID, flu were negative. Symptoms likely viral in etiology. Pt well hydrated appearing, in no respiratory distress, hemodynamically stable. Recommend supportive care. The patient is stable at time of discharge the clinical impression was discussed and the patient was given the opportunity to ask questions, which were addressed as completely as possible given the information available at present. Anticipatory guidance and return to care precautions were discussed and the importance of primary care follow-up was stressed and encouraged. The patient voiced understanding of the plan, indications to return, and the need for follow-up. Exam findings show no acute concerns or changes Patient is appropriate for outpatient treatment and follow-up. Differential Diagnosis Differential Diagnosis: Differential diagnosis considered: Dobbs virus, strep pharyngitis, allergic rhinitis, upper respiratory tract infection, sinusitis, rhinosinusitis, nasopharyngitis. viral pharyngitis, otitis media, otitis externa, otitis effusion, foreign body, cerumen impaction, viral syndrome, and influenza. Medical Records I have reviewed the following patient records and this information was taken into consideration when formulating the assessment and plan.: previous clinic visits Lab Data [facility] Lab Attestation statement: I personally reviewed the patient's lab results. Labs: Lab Results 04/06/25 Range/Units 19:22 POC Influenza A Ag Negative (Negative) POC Influenza B Ag Negative (Negative) POC SARS CoV-2 Ag Negative (Negative) Discharge Plan Discharge Clinical Impression: Upper respiratory infection Qualifiers: URI type: unspecified viral URI Qualified Code(s): J06.9 - Acute upper respiratory infection, unspecified Patient Disposition: Home Condition: Stable Instructions: Upper Respiratory Infection (ED) Additional Instructions: Your Covid and flu are both negative Your symptoms are likely due to a viral illness, which is not treated with antibiotics. Viral symptoms can be present for up to a few weeks. -For pain/fever, you may take: Tylenol 650-1000mg by mouth every 4-6 hours. Do not exceed 4000mg in 24 hours. Advil (Ibuprofen) 600 mg by mouth every 6 hours. Do not exceed 2400mg in 24 hours. 8 AM: Tylenol 11 AM: Ibuprofen 2 PM: Tylenol 5 PM: Ibuprofen 8 PM: Tylenol 11 PM: Ibuprofen 2 AM: Tylenol 5 AM: Ibuprofen -Antihistamine medication such as Benadryl/Zyrtec at night and Claritin/Nisa during the day can help improve symptoms. -Use Flonase twice a day for 5 days then daily to help reduce the inflammation and dry up your sinuses. -You can also use Sudafed behind the pharmacy counter(12 or 24 hour). Be sure to drink plenty of water with these medications at least 8 ounces with every dose and it is important to drink 8 to 10 glasses of water per day. Water is a natural decongestant -Eat and drink things that are easy to swallow, like tea or soup, or popsicles. -Oral rinses such as: Salt water gargles and/or may use topical anesthetic (eg. Chloraseptic spray) or lozenges to relieve dryness or throat pain). -Frequent hand washing or hand clock and watch hands dipper is one of the best ways to prevent spread of infection. -Using a vaporizer or humidifier at night will also help thin secretions and help with coughing up phlegm. Call your Primary Care Doctor and make a follow-up appointment in 3 days. If your cough worsens, you develop a fever greater than 103, you develop shaking chills, a fast heartbeat, trouble breathing and/or feel you are are breathing much faster than usual, call your Primary Care Doctor or go to the ER. Patient Language: Georgian Prescriptions: No Action fluticasone propionate 110 mcg/actuation HFA aerosol inhaler 1 puff INHALATION BID fluticasone propionate 44 mcg/actuation HFA aerosol inhaler 1 puff inhalation BID Qty: 10.6 0RF fluticasone propionate 110 mcg/actuation HFA aerosol inhaler 1 puff inhalation Q12H Qty: 12 0RF albuterol sulfate 90 mcg/actuation HFA aerosol inhaler 2 puff inhalation QID PRN (Reason: shortness of breath or wheezing) Qty: 6.7 0RF albuterol sulfate 1.25 mg/3 mL solution for nebulization 1.25 mg inhalation Q4H Qty: 90 0RF Follow-up/Referrals: Lv Brenner MD [Physician, Family Practice] - 3 Days Stand Alone Forms: Work/School Release IP Time of Disposition: 19:45
[2025-04-06 19:27] VITALS: BP 129/70; PULSE 106; RESP 18; TEMP 37.2; O2SAT 100
[2025-04-06 19:43] LABS: EDCOVIDSCREEN Negative (Negative); EDINFLUASCREEN Negative (Negative); EDINFLUBSCREEN Negative (Negative)
== END 2025-04-06 19:51 | disposition home or self-care (01) ==
PROVIDERS: Emergency Provider Nurse Practitioner Family
DX: J06.9 Acute upper respiratory infection, unspecified (principal); Z20.822 Contact with and (suspected) exposure to COVID-19; F17.290 Nicotine dependence, other tobacco product, uncomplicated; J45.909 Unspecified asthma, uncomplicated
CPT/HCPCS: 87426; 87804; 99213; G0463